=== PATIENT | female | born 1940 | race Caucasian/White ===

== ENCOUNTER 2018-08-14 18:01 | Inpatient (IN) | payer BC, OTHER ==
[2018-08-14 19:59] LABS: ADD MAN DIFF? NO
[2018-08-14 20:02] LABS: BASOPHILS % 0.1 % (0.0-2.0); EOSINOPHILS % 0.4 % (0.0-7.0); HEMATOCRIT 25.1 % (37.0-47.0); HEMOGLOBIN 7.7 g/dl (12.0-16.0); LYMPHOCYTES # 0.9 10^3/ul (0.8-2.9); MEAN CORPUSCULAR HEMOGLOBIN 30.2 pg (29.0-33.0); MEAN CORPUSCULAR HGB CONC 30.7 g/dl (32.0-37.0); MEAN CORPUSCULAR VOLUME 98.4 fl (82.0-101.0); MEAN PLATELET VOLUME 10.3 fl (7.4-10.4); MONOCYTE # 0.2 10^3/ul (0.3-0.9); MONOCYTES % 2.7 % (0.0-11.0); NEUTROPHIL # 7.7 10^3/ul (1.6-7.5); NEUTROPHILS % 85.5 % (39.0-77.0); NUCLEATED RED BLOOD CELLS% 0.2 /100WBC (0.0-0.0); PLATELET COUNT 347 10^3/UL (140-415); RED BLOOD COUNT 2.55 10^6/ul (4.20-5.40); RED CELL DISTRIBUTION WIDTH 21.6 % (11.5-14.5)
[2018-08-14 20:08] LABS: ADD UMIC YES; UR ASCORBIC ACID NEGATIVE (NEGATIVE); UR BILIRUBIN (Dip) NEGATIVE (NEGATIVE); UR BLOOD (Dip) 2+ mg/dL (NEGATIVE); UR CLARITY CLEAR (CLEAR); UR COLOR YELLOW (YELLOW); UR GLUCOSE (Dip) NEGATIVE (NEGATIVE); UR KETONES (Dip) NEGATIVE (NEGATIVE); UR LEUKOCYTE ESTERASE (Dip) NEGATIVE Leu/ul (NEGATIVE); UR NITRITE (Dip) NEGATIVE (NEGATIVE); UR RBC 1 /HPF (0-5); UR SPECIFIC GRAVITY (Dip) 1.015 (1.003-1.030); UR SQUAMOUS EPITHELIAL CELL FEW /HPF (FEW); UR TOTAL PROTEIN (Dip) NEGATIVE (NEGATIVE); UR UROBILINOGEN (Dip) NEGATIVE (NEGATIVE); UR WBC 1 /HPF (0-5)
[2018-08-14 20:18] LABS: ALANINE AMINOTRANSFERASE 16 IU/L (13-69); ALBUMIN 2.3 g/dl (3.3-4.9); ALBUMIN/GLOBULIN RATIO 0.92; ALKALINE PHOSPHATASE 115 IU/L (42-121); ANION GAP 12 (5-13); ASPARTATE AMINO TRANSFERASE 24 IU/L (15-46); BLOOD UREA NITROGEN 100 mg/dl (7-20); CALCIUM 8.6 mg/dl (8.4-10.2); CARBON DIOXIDE 16 mmol/L (21-31); CHLORIDE 104 mmol/L (97-110); GLUCOSE 75 mg/dl (70-220); LIPASE 140 U/L (23-300); POTASSIUM 5.4 mmol/L (3.5-5.1); SODIUM 132 mmol/L (135-144); TOTAL PROTEIN 4.8 g/dl (6.1-8.1)
[2018-08-14 20:20] LABS: INR 1.74; PROTIME 20.4 Sec (11.9-14.9); PT RATIO 1.6
[2018-08-14 20:21] LABS: PARTIAL THROMBOPLASTIN TIME 42.7 Sec (23.0-35.0)
[2018-08-14] MEDS: SOD CHLORIDE 0.9% 1,000 ML IV (20:25)
[2018-08-14 20:26] LABS: CREATININE 2.55 mg/dl (0.44-1.00)
[2018-08-14 20:31] LABS: TROPONIN-I 0.147 ng/ml (0.000-0.120)
[2018-08-14] MEDS: ONDANSETRON 4 MG INJ IV (20:58)
[2018-08-14] MEDS: morphine 4 MG/ML VIAL IV (20:59)
[2018-08-14] MEDS ORDERED: DIPHENOXYLATE/ATROPINE TAB PO (23:30)
[2018-08-15] MEDS: SOD CHLORIDE 0.9% 1,000 ML IV ×2 (00:21→12:50)
[2018-08-15] MEDS: EPOETIN 10000 UNITS/ML (NON ESRD/NON ONCOLOGY) SC (02:13)
[2018-08-15 05:52] LABS: ADD MAN DIFF? NO
[2018-08-15 06:02] LABS: ABNORMAL IP MESSAGE 1; BASOPHILS % 0.1 % (0.0-2.0); EOSINOPHILS % 0.1 % (0.0-7.0); HEMATOCRIT 21.6 % (37.0-47.0); LYMPHOCYTES # 0.8 10^3/ul (0.8-2.9); LYMPHOCYTES % 7.9 % (15.0-51.0); MEAN CORPUSCULAR HEMOGLOBIN 30.5 pg (29.0-33.0); MEAN CORPUSCULAR HGB CONC 31.9 g/dl (32.0-37.0); MEAN CORPUSCULAR VOLUME 95.6 fl (82.0-101.0); MONOCYTE # 0.3 10^3/ul (0.3-0.9); MONOCYTES % 2.9 % (0.0-11.0); NEUTROPHIL # 9.3 10^3/ul (1.6-7.5); NEUTROPHILS % 87.8 % (39.0-77.0); PLATELET COUNT 324 10^3/UL (140-415); RED BLOOD COUNT 2.26 10^6/ul (4.20-5.40); RED CELL DISTRIBUTION WIDTH 21.4 % (11.5-14.5)
[2018-08-15 06:02] LABS: WHITE BLOOD COUNT 10.6 10^3/ul (4.8-10.8)
[2018-08-15 06:23] LABS: POSITIVE DIFF @See below
[2018-08-15 06:25] LABS: HEMOGLOBIN 6.9 g/dl (12.0-16.0)
[2018-08-15 06:29] LABS: ANION GAP 12 (5-13); BLOOD UREA NITROGEN 99 mg/dl (7-20); CALCIUM 8.3 mg/dl (8.4-10.2); CARBON DIOXIDE 14 mmol/L (21-31); CHLORIDE 106 mmol/L (97-110); GLUCOSE 66 mg/dl (70-220); MAGNESIUM 2.4 mg/dl (1.7-2.5); POTASSIUM 5.2 mmol/L (3.5-5.1); SODIUM 132 mmol/L (135-144)
[2018-08-15 06:36] LABS: CREATININE 2.53 mg/dl (0.44-1.00)
[2018-08-15 06:37] LABS: TROPONIN-I 0.131 ng/ml (0.000-0.120)
[2018-08-15 07:17] LABS: RETICULOCYTE COUNT # 0.069 X10^6 (0.020-0.110); RETICULOCYTE COUNT % 3.1 % (0.5-1.5)
[2018-08-15 07:17] LABS: RETICULOCYTE RBC 2.21
[2018-08-15 07:22] LABS: IRON 22 ug/dl (35-150)
[2018-08-15 07:31] LABS: % IRON SATURATION 18 % SAT (22-52); TOTAL IRON BINDING CAPACITY 125 ug/dl (241-421)
[2018-08-15] MEDS: BENAZEPRIL 10 MG TAB PO (09:00)
[2018-08-15] MEDS: NEOMYC/POLYMYX/BACIT 30 GM OINT TOP ×2 (09:34→20:41)
[2018-08-15] MEDS: FERROUS SULFATE 60 MG/ML 5ML CUP PO ×3 (09:34→20:38)
[2018-08-15] MEDS: ACETAMINOPHEN 325 MG TAB PO (11:40)
[2018-08-15] MEDS: DIPHENHYDRAMINE 25 MG CAP PO (11:41)
[2018-08-15 13:27] LABS: OCCULT BLOOD STOOL POSITIVE (NEGATIVE)
[2018-08-15] MEDS: EPOETIN 10000 UNITS/1 ML INJ (ESRD) SC (15:31)
[2018-08-15] MEDS: FUROSEMIDE 40 MG INJ IV (15:31)
[2018-08-15 17:46] LABS: IMMEDIATE SPIN CROSSMATCH 1 2
[2018-08-15] MEDS: PANTOPRAZOLE 40 MG INJ IV (18:05)
[2018-08-15 20:09] LABS: INR 1.65; PROTIME 19.6 Sec (11.9-14.9); PT RATIO 1.5
[2018-08-15] MEDS: SODIUM BICARBONATE (IV ADD) 150 MEQ in DEXTROSE 5% 1,000 ML IV (20:38)
[2018-08-15] MEDS: LACTULOSE 30ML CUP PO ×3 (20:38→22:38)
[2018-08-15] MEDS: ATORVASTATIN 20 MG TAB PO (20:38)
[2018-08-15] MEDS: PEG/ELECTROLYTES 4L BTL PO (21:37)
[2018-08-16] MEDS: LACTULOSE 30ML CUP PO (00:40)
[2018-08-16] MEDS: PANTOPRAZOLE 40 MG INJ IV ×2 (05:08→18:16)
[2018-08-16 06:17] LABS: ADD MAN DIFF? NO
[2018-08-16 06:19] LABS: BASOPHILS % 0.2 % (0.0-2.0); EOSINOPHILS % 0.5 % (0.0-7.0); HEMATOCRIT 28.3 % (37.0-47.0); LYMPHOCYTES # 0.8 10^3/ul (0.8-2.9); LYMPHOCYTES % 9.7 % (15.0-51.0); MEAN CORPUSCULAR HEMOGLOBIN 30.2 pg (29.0-33.0); MEAN CORPUSCULAR HGB CONC 32.2 g/dl (32.0-37.0); MEAN PLATELET VOLUME 10.7 fl (7.4-10.4); MONOCYTE # 0.3 10^3/ul (0.3-0.9); MONOCYTES % 3.6 % (0.0-11.0); NEUTROPHIL # 7.3 10^3/ul (1.6-7.5); NEUTROPHILS % 84.8 % (39.0-77.0); NUCLEATED RED BLOOD CELLS% 0.2 /100WBC (0.0-0.0); PLATELET COUNT 296 10^3/UL (140-415); RED BLOOD COUNT 3.01 10^6/ul (4.20-5.40); RED CELL DISTRIBUTION WIDTH 19.6 % (11.5-14.5)
[2018-08-16 06:19] LABS: WHITE BLOOD COUNT 8.6 10^3/ul (4.8-10.8)
[2018-08-16] MEDS: SODIUM BICARBONATE (IV ADD) 150 MEQ in DEXTROSE 5% 1,000 ML IV ×2 (06:36→20:40)
[2018-08-16 06:39] LABS: ALANINE AMINOTRANSFERASE 17 IU/L (13-69); ALBUMIN 2.1 g/dl (3.3-4.9); ALBUMIN/GLOBULIN RATIO 0.91; ALKALINE PHOSPHATASE 106 IU/L (42-121); ANION GAP 9 (5-13); ASPARTATE AMINO TRANSFERASE 22 IU/L (15-46); BILIRUBIN,INDIRECT 0.1 mg/dl (0-1.1); BILIRUBIN,TOTAL 0.1 mg/dl (0.2-1.3); BLOOD UREA NITROGEN 95 mg/dl (7-20); CALCIUM 8.2 mg/dl (8.4-10.2); CARBON DIOXIDE 19 mmol/L (21-31); CHLORIDE 108 mmol/L (97-110); CREATININE 2.73 mg/dl (0.44-1.00); GLUCOSE 118 mg/dl (70-220); PHOSPHORUS 4.3 mg/dl (2.5-4.9); POTASSIUM 4.4 mmol/L (3.5-5.1); SODIUM 136 mmol/L (135-144); TOTAL PROTEIN 4.4 g/dl (6.1-8.1)
[2018-08-16 06:51] LABS: HEMOGLOBIN 9.1 g/dl (12.0-16.0)
[2018-08-16 07:08] LABS: IMMUNOGLOBULIN A 335 mg/dl (70-400); IMMUNOGLOBULIN G 606 mg/dl (700-1600); IMMUNOGLOBULIN M < 25 mg/dl (40-230)
[2018-08-16] MEDS: FERROUS SULFATE 60 MG/ML 5ML CUP PO ×3 (08:30→21:20)
[2018-08-16] MEDS: NEOMYC/POLYMYX/BACIT 30 GM OINT TOP ×2 (08:30→21:20)
[2018-08-16] MEDS: FUROSEMIDE 40 MG INJ IV (09:05)
[2018-08-16 10:12] LABS: OCCULT BLOOD STOOL POSITIVE (NEGATIVE)
[2018-08-16] MEDS: PROPOFOL 40 ML (15:01)
[2018-08-16] MEDS: PHENYLephrine (100 MCG/ML) 5ML SYG (15:01)
[2018-08-16] MEDS: GLUCAGON 1 MG INJ (15:33)
[2018-08-16 18:22] LABS: ADD UMIC YES; UR ASCORBIC ACID NEGATIVE (NEGATIVE); UR BILIRUBIN (Dip) NEGATIVE (NEGATIVE); UR BLOOD (Dip) 1+ mg/dL (NEGATIVE); UR CLARITY CLEAR (CLEAR); UR COLOR YELLOW (YELLOW); UR GLUCOSE (Dip) NEGATIVE (NEGATIVE); UR KETONES (Dip) NEGATIVE (NEGATIVE); UR LEUKOCYTE ESTERASE (Dip) NEGATIVE Leu/ul (NEGATIVE); UR NITRITE (Dip) NEGATIVE (NEGATIVE); UR RBC 0 /HPF (0-5); UR SPECIFIC GRAVITY (Dip) 1.013 (1.003-1.030); UR TOTAL PROTEIN (Dip) NEGATIVE (NEGATIVE); UR UROBILINOGEN (Dip) NEGATIVE (NEGATIVE); UR WBC 6 /HPF (0-5)
[2018-08-16] MEDS: ATORVASTATIN 20 MG TAB PO (21:20)
[2018-08-17] MEDS: PANTOPRAZOLE 40 MG INJ IV ×2 (06:08→17:37)
[2018-08-17 06:18] LABS: ADD MAN DIFF? NO; BASOPHILS % 0.3 % (0.0-2.0); EOSINOPHILS # 0.1 10^3/ul (0.0-0.5); EOSINOPHILS % 0.8 % (0.0-7.0); HEMOGLOBIN 9.2 g/dl (12.0-16.0); LYMPHOCYTES # 0.8 10^3/ul (0.8-2.9); LYMPHOCYTES % 9.3 % (15.0-51.0); MEAN CORPUSCULAR HEMOGLOBIN 30.8 pg (29.0-33.0); MEAN CORPUSCULAR HGB CONC 31.7 g/dl (32.0-37.0); MEAN PLATELET VOLUME 11.1 fl (7.4-10.4); MONOCYTE # 0.4 10^3/ul (0.3-0.9); MONOCYTES % 4.6 % (0.0-11.0); NEUTROPHIL # 7.2 10^3/ul (1.6-7.5); NEUTROPHILS % 83.4 % (39.0-77.0); PLATELET COUNT 258 10^3/UL (140-415); RED BLOOD COUNT 2.99 10^6/ul (4.20-5.40); RED CELL DISTRIBUTION WIDTH 20.4 % (11.5-14.5)
[2018-08-17 06:18] LABS: WHITE BLOOD COUNT 8.7 10^3/ul (4.8-10.8)
[2018-08-17 06:55] LABS: ALANINE AMINOTRANSFERASE 15 IU/L (13-69); ALBUMIN 2.1 g/dl (3.3-4.9); ALBUMIN/GLOBULIN RATIO 0.91; ALKALINE PHOSPHATASE 99 IU/L (42-121); ANION GAP 11 (5-13); ASPARTATE AMINO TRANSFERASE 24 IU/L (15-46); BLOOD UREA NITROGEN 89 mg/dl (7-20); CALCIUM 8.2 mg/dl (8.4-10.2); CARBON DIOXIDE 16 mmol/L (21-31); CHLORIDE 109 mmol/L (97-110); CREATININE 2.47 mg/dl (0.44-1.00); GLUCOSE 88 mg/dl (70-220); POTASSIUM 3.8 mmol/L (3.5-5.1); SODIUM 136 mmol/L (135-144); TOTAL PROTEIN 4.4 g/dl (6.1-8.1)
[2018-08-17] MEDS: FERROUS SULFATE 60 MG/ML 5ML CUP PO ×3 (08:39→20:41)
[2018-08-17] MEDS: FUROSEMIDE 40 MG INJ IV (08:39)
[2018-08-17] MEDS: NEOMYC/POLYMYX/BACIT 30 GM OINT TOP ×2 (08:39→20:42)
[2018-08-17] MEDS: BALSAM PERU/CASTOR OIL 60 GM TUBE TOP (08:40)
[2018-08-17 09:36] LABS: PROTEIN, TOTAL 4.2 g/dL (6.1-8.1)
[2018-08-17] MEDS: SUCRALFATE 1 GM TAB PO ×2 (17:37→23:31)
[2018-08-17] MEDS: ATORVASTATIN 20 MG TAB PO (20:41)
[2018-08-18] MEDS: SUCRALFATE 1 GM TAB PO ×3 (05:39→17:13)
[2018-08-18] MEDS: PANTOPRAZOLE 40 MG INJ IV ×2 (05:39→17:13)
[2018-08-18] MEDS: FERROUS SULFATE 60 MG/ML 5ML CUP PO ×3 (08:28→20:54)
[2018-08-18] MEDS: NEOMYC/POLYMYX/BACIT 30 GM OINT TOP ×2 (08:28→20:54)
[2018-08-18] MEDS: FUROSEMIDE 40 MG INJ IV (08:31)
[2018-08-18] MEDS: BALSAM PERU/CASTOR OIL 60 GM TUBE TOP (09:42)
[2018-08-18] MEDS: ATORVASTATIN 20 MG TAB PO (20:53)
[2018-08-18 22:27] LABS: PTH CALCIUM 7.6 mg/dL (8.6-10.4)
[2018-08-19] MEDS: SUCRALFATE 1 GM TAB PO ×4 (00:35→17:35)
[2018-08-19] MEDS: PANTOPRAZOLE 40 MG INJ IV ×2 (05:19→17:35)
[2018-08-19 05:29] LABS: ADD MAN DIFF? NO
[2018-08-19 05:45] LABS: BASOPHILS % 0.3 % (0.0-2.0); EOSINOPHILS # 0.2 10^3/ul (0.0-0.5); HEMATOCRIT 28.4 % (37.0-47.0); HEMOGLOBIN 9.4 g/dl (12.0-16.0); LYMPHOCYTES # 0.9 10^3/ul (0.8-2.9); LYMPHOCYTES % 9.1 % (15.0-51.0); MEAN CORPUSCULAR HGB CONC 33.1 g/dl (32.0-37.0); MEAN CORPUSCULAR VOLUME 93.7 fl (82.0-101.0); MEAN PLATELET VOLUME 10.7 fl (7.4-10.4); MONOCYTE # 0.5 10^3/ul (0.3-0.9); MONOCYTES % 5.3 % (0.0-11.0); NEUTROPHIL # 7.6 10^3/ul (1.6-7.5); NEUTROPHILS % 81.3 % (39.0-77.0); PLATELET COUNT 244 10^3/UL (140-415); RED BLOOD COUNT 3.03 10^6/ul (4.20-5.40)
[2018-08-19 05:45] LABS: WHITE BLOOD COUNT 9.4 10^3/ul (4.8-10.8)
[2018-08-19 06:14] LABS: ALANINE AMINOTRANSFERASE 19 IU/L (13-69); ALBUMIN 1.9 g/dl (3.3-4.9); ALBUMIN/GLOBULIN RATIO 0.82; ALKALINE PHOSPHATASE 89 IU/L (42-121); ANION GAP 5 (5-13); ASPARTATE AMINO TRANSFERASE 15 IU/L (15-46); BLOOD UREA NITROGEN 76 mg/dl (7-20); CARBON DIOXIDE 21 mmol/L (21-31); CHLORIDE 108 mmol/L (97-110); CREATININE 2.25 mg/dl (0.44-1.00); GLUCOSE 118 mg/dl (70-220); POTASSIUM 3.2 mmol/L (3.5-5.1); SODIUM 134 mmol/L (135-144); TOTAL PROTEIN 4.2 g/dl (6.1-8.1)
[2018-08-19] MEDS: FUROSEMIDE 40 MG INJ IV (08:33)
[2018-08-19] MEDS: FERROUS SULFATE 60 MG/ML 5ML CUP PO ×3 (08:34→21:01)
[2018-08-19] MEDS: BALSAM PERU/CASTOR OIL 60 GM TUBE TOP (08:34)
[2018-08-19] MEDS: POTASSIUM CHLORIDE (SR) 20 MEQ TAB PO ×2 (08:34→21:01)
[2018-08-19] MEDS: NEOMYC/POLYMYX/BACIT 30 GM OINT TOP ×2 (08:34→21:02)
[2018-08-19 08:36] LABS: PTH INTACT 78 pg/mL (14-64)
[2018-08-19 14:53] LABS: BETA-2 MICROGLOBULIN 17.63 mg/L (< OR = 2.51)
[2018-08-19] MEDS: ATORVASTATIN 20 MG TAB PO (21:01)
[2018-08-19] MEDS: NYSTATIN 30 GM POWDER BTL TOP (21:02)
[2018-08-19 23:23] LABS: ALBUMIN 2.1 g/dL (3.8-4.8); ALPHA-1-GLOBULINS 0.5 g/dL (0.2-0.3); ALPHA-2-GLOBULINS 0.5 g/dL (0.5-0.9); BETA 2 GLOBULINS 0.3 g/dL (0.2-0.5); BETA GLOBULINS 0.2 g/dL (0.4-0.6); GAMMA GLOBULINS 0.6 g/dL (0.8-1.7)
[2018-08-20] MEDS: SUCRALFATE 1 GM TAB PO ×4 (00:45→17:34)
[2018-08-20] MEDS: ALBUMIN HUMAN 25% 100 ML IV ×2 (00:47→02:07)
[2018-08-20] MEDS: PANTOPRAZOLE 40 MG INJ IV ×2 (05:12→17:34)
[2018-08-20 05:15] LABS: ADD MAN DIFF? NO
[2018-08-20 05:20] LABS: BASOPHILS % 0.3 % (0.0-2.0); EOSINOPHILS # 0.2 10^3/ul (0.0-0.5); EOSINOPHILS % 2.8 % (0.0-7.0); HEMATOCRIT 23.8 % (37.0-47.0); HEMOGLOBIN 7.7 g/dl (12.0-16.0); LYMPHOCYTES # 0.8 10^3/ul (0.8-2.9); LYMPHOCYTES % 11.9 % (15.0-51.0); MEAN CORPUSCULAR HEMOGLOBIN 30.6 pg (29.0-33.0); MEAN CORPUSCULAR HGB CONC 32.4 g/dl (32.0-37.0); MEAN CORPUSCULAR VOLUME 94.4 fl (82.0-101.0); MEAN PLATELET VOLUME 10.7 fl (7.4-10.4); MONOCYTE # 0.4 10^3/ul (0.3-0.9); MONOCYTES % 6.2 % (0.0-11.0); NEUTROPHIL # 5.3 10^3/ul (1.6-7.5); NEUTROPHILS % 77.2 % (39.0-77.0); PLATELET COUNT 215 10^3/UL (140-415); RED BLOOD COUNT 2.52 10^6/ul (4.20-5.40); RED CELL DISTRIBUTION WIDTH 20.3 % (11.5-14.5)
[2018-08-20 05:20] LABS: WHITE BLOOD COUNT 6.8 10^3/ul (4.8-10.8)
[2018-08-20 05:26] LABS: ANION GAP 9 (5-13); BLOOD UREA NITROGEN 75 mg/dl (7-20); CALCIUM 8.2 mg/dl (8.4-10.2); CARBON DIOXIDE 21 mmol/L (21-31); CHLORIDE 105 mmol/L (97-110); CREATININE 2.02 mg/dl (0.44-1.00); GLUCOSE 94 mg/dl (70-220); POTASSIUM 3.4 mmol/L (3.5-5.1); SODIUM 135 mmol/L (135-144)
[2018-08-20] MEDS: FERROUS SULFATE 60 MG/ML 5ML CUP PO ×3 (08:32→20:30)
[2018-08-20] MEDS: ASPIRIN (EC) 81 MG TAB PO ×2 (08:33→09:00)
[2018-08-20] MEDS: POTASSIUM CHLORIDE (SR) 20 MEQ TAB PO (08:33)
[2018-08-20] MEDS: FUROSEMIDE 40 MG INJ IV (08:33)
[2018-08-20] MEDS: CALCIUM CARBONATE 500 MG CHEW TAB PO ×3 (08:33→18:17)
[2018-08-20] MEDS: NEOMYC/POLYMYX/BACIT 30 GM OINT TOP ×2 (08:34→20:32)
[2018-08-20] MEDS: NYSTATIN 30 GM POWDER BTL TOP ×2 (08:34→20:31)
[2018-08-20] MEDS: BALSAM PERU/CASTOR OIL 60 GM TUBE TOP (08:34)
[2018-08-20] MEDS: DIPHENHYDRAMINE 50 MG CAP PO (12:03)
[2018-08-20 13:40] LABS: IMMEDIATE SPIN CROSSMATCH 1
[2018-08-20] MEDS: ACETAMINOPHEN 325 MG TAB PO (13:51)
[2018-08-20 15:40] LABS: HEMOGLOBIN 10.1 g/dl (12.0-16.0)
[2018-08-20 15:55] LABS: POTASSIUM 3.8 mmol/L (3.5-5.1)
[2018-08-20 17:02] LABS: IMMEDIATE SPIN CROSSMATCH 1 2
[2018-08-20] MEDS: ATORVASTATIN 20 MG TAB PO (20:30)
[2018-08-21] MEDS: SUCRALFATE 1 GM TAB PO ×5 (00:07→23:51)
[2018-08-21] MEDS: PANTOPRAZOLE 40 MG INJ IV ×2 (06:07→18:07)
[2018-08-21] MEDS: FUROSEMIDE 40 MG INJ IV (09:01)
[2018-08-21] MEDS: NEOMYC/POLYMYX/BACIT 30 GM OINT TOP ×2 (09:01→20:53)
[2018-08-21] MEDS: CALCIUM CARBONATE 500 MG CHEW TAB PO ×3 (09:01→18:09)
[2018-08-21] MEDS: FERROUS SULFATE 60 MG/ML 5ML CUP PO ×3 (09:01→20:52)
[2018-08-21] MEDS: NYSTATIN 30 GM POWDER BTL TOP ×2 (09:02→20:53)
[2018-08-21] MEDS: BALSAM PERU/CASTOR OIL 60 GM TUBE TOP (09:04)
[2018-08-21 10:30] LABS: ADD MAN DIFF? NO
[2018-08-21 10:33] LABS: WHITE BLOOD COUNT 8.3 10^3/ul (4.8-10.8)
[2018-08-21 10:34] LABS: ABNORMAL IP MESSAGE 1; BASOPHILS % 0.5 % (0.0-2.0); EOSINOPHILS # 0.3 10^3/ul (0.0-0.5); EOSINOPHILS % 3.5 % (0.0-7.0); HEMATOCRIT 32.8 % (37.0-47.0); HEMOGLOBIN 10.6 g/dl (12.0-16.0); LYMPHOCYTES # 0.6 10^3/ul (0.8-2.9); MEAN CORPUSCULAR HEMOGLOBIN 30.9 pg (29.0-33.0); MEAN CORPUSCULAR HGB CONC 32.3 g/dl (32.0-37.0); MEAN CORPUSCULAR VOLUME 95.6 fl (82.0-101.0); MEAN PLATELET VOLUME 10.6 fl (7.4-10.4); MONOCYTE # 0.6 10^3/ul (0.3-0.9); MONOCYTES % 6.6 % (0.0-11.0); NEUTROPHIL # 6.7 10^3/ul (1.6-7.5); NEUTROPHILS % 80.8 % (39.0-77.0); PLATELET COUNT 239 10^3/UL (140-415); RED BLOOD COUNT 3.43 10^6/ul (4.20-5.40); RED CELL DISTRIBUTION WIDTH 20.2 % (11.5-14.5)
[2018-08-21 10:36] LABS: POSITIVE DIFF @See below
[2018-08-21 10:57] LABS: ANION GAP 9 (5-13); BLOOD UREA NITROGEN 67 mg/dl (7-20); CALCIUM 8.4 mg/dl (8.4-10.2); CARBON DIOXIDE 24 mmol/L (21-31); CHLORIDE 106 mmol/L (97-110); CREATININE 1.87 mg/dl (0.44-1.00); GLUCOSE 137 mg/dl (70-220); POTASSIUM 3.3 mmol/L (3.5-5.1); SODIUM 139 mmol/L (135-144)
[2018-08-21] MEDS: POTASSIUM CHLORIDE (SR) 20 MEQ TAB PO ×2 (13:07→20:52)
[2018-08-21] MEDS: ATORVASTATIN 20 MG TAB PO (20:52)
[2018-08-22] MEDS: SUCRALFATE 1 GM TAB PO ×3 (05:40→17:28)
[2018-08-22] MEDS: PANTOPRAZOLE 40 MG INJ IV ×2 (05:40→17:28)
[2018-08-22 06:21] LABS: ADD MAN DIFF? NO
[2018-08-22 06:28] LABS: BASOPHILS % 0.4 % (0.0-2.0); EOSINOPHILS # 0.2 10^3/ul (0.0-0.5); EOSINOPHILS % 2.7 % (0.0-7.0); HEMATOCRIT 32.1 % (37.0-47.0); HEMOGLOBIN 10.4 g/dl (12.0-16.0); LYMPHOCYTES # 0.6 10^3/ul (0.8-2.9); LYMPHOCYTES % 9.1 % (15.0-51.0); MEAN CORPUSCULAR HEMOGLOBIN 30.9 pg (29.0-33.0); MEAN CORPUSCULAR HGB CONC 32.4 g/dl (32.0-37.0); MEAN CORPUSCULAR VOLUME 95.3 fl (82.0-101.0); MEAN PLATELET VOLUME 10.9 fl (7.4-10.4); MONOCYTE # 0.5 10^3/ul (0.3-0.9); MONOCYTES % 6.8 % (0.0-11.0); NEUTROPHIL # 5.6 10^3/ul (1.6-7.5); NEUTROPHILS % 79.6 % (39.0-77.0); PLATELET COUNT 217 10^3/UL (140-415); RED BLOOD COUNT 3.37 10^6/ul (4.20-5.40); RED CELL DISTRIBUTION WIDTH 20.2 % (11.5-14.5)
[2018-08-22 06:39] LABS: POSITIVE DIFF @See below
[2018-08-22 06:52] LABS: ALBUMIN 2.2 g/dl (3.3-4.9)
[2018-08-22 06:52] LABS: MAGNESIUM 1.9 mg/dl (1.7-2.5)
[2018-08-22 07:01] LABS: INR 1.26; PROTIME 15.9 Sec (11.9-14.9); PT RATIO 1.2
[2018-08-22 07:02] LABS: ANION GAP 6 (5-13); BLOOD UREA NITROGEN 64 mg/dl (7-20); CALCIUM 8.4 mg/dl (8.4-10.2); CARBON DIOXIDE 24 mmol/L (21-31); CHLORIDE 109 mmol/L (97-110); CREATININE 1.77 mg/dl (0.44-1.00); GLUCOSE 93 mg/dl (70-220); POTASSIUM 3.7 mmol/L (3.5-5.1); SODIUM 139 mmol/L (135-144)
[2018-08-22] MEDS: CALCIUM CARBONATE 500 MG CHEW TAB PO ×3 (09:05→17:28)
[2018-08-22] MEDS: FUROSEMIDE 40 MG INJ IV (09:05)
[2018-08-22] MEDS: FERROUS SULFATE 60 MG/ML 5ML CUP PO ×3 (09:06→21:14)
[2018-08-22] MEDS: NYSTATIN 30 GM POWDER BTL TOP ×2 (09:06→21:13)
[2018-08-22] MEDS: POTASSIUM CHLORIDE (SR) 20 MEQ TAB PO (09:06)
[2018-08-22] MEDS: ESCITALOPRAM 10 MG TAB PO (09:06)
[2018-08-22] MEDS: NEOMYC/POLYMYX/BACIT 30 GM OINT TOP ×2 (09:06→21:14)
[2018-08-22] MEDS: BALSAM PERU/CASTOR OIL 60 GM TUBE TOP (09:07)
[2018-08-22] MEDS: HYDROmorphONE 2 MG/ML SYG IV ×2 (14:49→21:22)
[2018-08-22] MEDS: VITAMIN B COMPLEX/VIT C CAP PO (16:49)
[2018-08-22] MEDS: MEMANTINE 10 MG TAB PO (16:50)
[2018-08-22] MEDS: ALBUMIN HUMAN 25% 100 ML IV ×2 (20:12→21:21)
[2018-08-22] MEDS: COLLAGENASE 5 GM (UD JAR) TOP (21:13)
[2018-08-22] MEDS: ATORVASTATIN 20 MG TAB PO (21:14)
[2018-08-22] MEDS: CLINDAMYCIN 300 MG CAP PO (22:00)
[2018-08-23 06:20] LABS: ADD MAN DIFF? NO
[2018-08-23] MEDS: CLINDAMYCIN 300 MG CAP PO ×3 (06:28→22:50)
[2018-08-23] MEDS: PANTOPRAZOLE 40 MG INJ IV ×2 (06:28→17:28)
[2018-08-23] MEDS: SUCRALFATE 1 GM TAB PO ×4 (06:28→17:29)
[2018-08-23 06:29] LABS: BASOPHILS % 0.6 % (0.0-2.0); EOSINOPHILS # 0.2 10^3/ul (0.0-0.5); EOSINOPHILS % 3.5 % (0.0-7.0); HEMATOCRIT 29.3 % (37.0-47.0); HEMOGLOBIN 9.2 g/dl (12.0-16.0); LYMPHOCYTES # 0.7 10^3/ul (0.8-2.9); LYMPHOCYTES % 10.8 % (15.0-51.0); MEAN CORPUSCULAR HEMOGLOBIN 31.3 pg (29.0-33.0); MEAN CORPUSCULAR HGB CONC 31.4 g/dl (32.0-37.0); MEAN CORPUSCULAR VOLUME 99.7 fl (82.0-101.0); MEAN PLATELET VOLUME 11.2 fl (7.4-10.4); MONOCYTE # 0.5 10^3/ul (0.3-0.9); MONOCYTES % 7.2 % (0.0-11.0); NEUTROPHIL # 4.9 10^3/ul (1.6-7.5); NEUTROPHILS % 77.1 % (39.0-77.0); PLATELET COUNT 197 10^3/UL (140-415); RED BLOOD COUNT 2.94 10^6/ul (4.20-5.40); RED CELL DISTRIBUTION WIDTH 20.5 % (11.5-14.5)
[2018-08-23 06:29] LABS: WHITE BLOOD COUNT 6.3 10^3/ul (4.8-10.8)
[2018-08-23 07:15] LABS: ALBUMIN 2.7 g/dl (3.3-4.9); ANION GAP 7 (5-13); BLOOD UREA NITROGEN 61 mg/dl (7-20); CALCIUM 8.4 mg/dl (8.4-10.2); CARBON DIOXIDE 25 mmol/L (21-31); CHLORIDE 107 mmol/L (97-110); CREATININE 1.91 mg/dl (0.44-1.00); GLUCOSE 92 mg/dl (70-220); POTASSIUM 3.4 mmol/L (3.5-5.1); SODIUM 139 mmol/L (135-144)
[2018-08-23] MEDS: ESCITALOPRAM 10 MG TAB PO (08:41)
[2018-08-23] MEDS: VITAMIN B COMPLEX/VIT C CAP PO (08:41)
[2018-08-23] MEDS: FERROUS SULFATE 60 MG/ML 5ML CUP PO ×3 (08:41→22:50)
[2018-08-23] MEDS: FUROSEMIDE 40 MG INJ IV (08:41)
[2018-08-23] MEDS: CALCIUM CARBONATE 500 MG CHEW TAB PO ×3 (08:41→17:29)
[2018-08-23] MEDS: NEOMYC/POLYMYX/BACIT 30 GM OINT TOP ×2 (08:42→22:51)
[2018-08-23] MEDS: COLLAGENASE 5 GM (UD JAR) TOP ×2 (08:42→22:51)
[2018-08-23] MEDS: BALSAM PERU/CASTOR OIL 60 GM TUBE TOP (08:43)
[2018-08-23] MEDS: NYSTATIN 30 GM POWDER BTL TOP ×2 (08:43→22:51)
[2018-08-23] MEDS: HYDROCODONE/APAP (10/325) TAB PO (14:50)
[2018-08-23] MEDS: MEMANTINE 10 MG TAB PO (17:29)
[2018-08-23] MEDS: ATORVASTATIN 20 MG TAB PO (22:50)
[2018-08-24] MEDS: SUCRALFATE 1 GM TAB PO ×5 (00:35→23:03)
[2018-08-24] MEDS: POTASSIUM CHLORIDE 100 ML IVPB ×2 (00:35→03:02)
[2018-08-24] MEDS: HYDROCODONE/APAP (10/325) TAB PO (01:10)
[2018-08-24] MEDS: PANTOPRAZOLE 40 MG INJ IV ×2 (05:58→17:36)
[2018-08-24] MEDS: CLINDAMYCIN 300 MG CAP PO ×3 (05:59→21:22)
[2018-08-24 06:32] LABS: ADD MAN DIFF? NO
[2018-08-24 06:49] LABS: BASOPHILS % 0.5 % (0.0-2.0); EOSINOPHILS # 0.2 10^3/ul (0.0-0.5); EOSINOPHILS % 2.5 % (0.0-7.0); HEMATOCRIT 31.3 % (37.0-47.0); HEMOGLOBIN 10.1 g/dl (12.0-16.0); LYMPHOCYTES # 0.7 10^3/ul (0.8-2.9); LYMPHOCYTES % 8.5 % (15.0-51.0); MEAN CORPUSCULAR HEMOGLOBIN 31.4 pg (29.0-33.0); MEAN CORPUSCULAR HGB CONC 32.3 g/dl (32.0-37.0); MEAN CORPUSCULAR VOLUME 97.2 fl (82.0-101.0); MEAN PLATELET VOLUME 11.7 fl (7.4-10.4); MONOCYTE # 0.5 10^3/ul (0.3-0.9); MONOCYTES % 5.7 % (0.0-11.0); NEUTROPHIL # 6.6 10^3/ul (1.6-7.5); NEUTROPHILS % 82.2 % (39.0-77.0); PLATELET COUNT 199 10^3/UL (140-415); RED BLOOD COUNT 3.22 10^6/ul (4.20-5.40); RED CELL DISTRIBUTION WIDTH 20.1 % (11.5-14.5)
[2018-08-24 07:11] LABS: ANION GAP 10 (5-13); BLOOD UREA NITROGEN 57 mg/dl (7-20); CALCIUM 8.3 mg/dl (8.4-10.2); CARBON DIOXIDE 26 mmol/L (21-31); CHLORIDE 102 mmol/L (97-110); GLUCOSE 82 mg/dl (70-220); MAGNESIUM 1.8 mg/dl (1.7-2.5); POTASSIUM 4.1 mmol/L (3.5-5.1); SODIUM 138 mmol/L (135-144)
[2018-08-24 07:19] LABS: B-TYPE NATRIURETIC PEPTIDE 12200 PG/ML (0-450)
[2018-08-24] MEDS: FERROUS SULFATE 60 MG/ML 5ML CUP PO ×3 (08:38→21:22)
[2018-08-24] MEDS: VITAMIN B COMPLEX/VIT C CAP PO (08:38)
[2018-08-24] MEDS: CALCIUM CARBONATE 500 MG CHEW TAB PO ×3 (08:40→17:35)
[2018-08-24] MEDS: FUROSEMIDE 40 MG TAB PO (08:41)
[2018-08-24] MEDS: ESCITALOPRAM 10 MG TAB PO (08:41)
[2018-08-24] MEDS: NEOMYC/POLYMYX/BACIT 30 GM OINT TOP ×2 (08:42→21:23)
[2018-08-24] MEDS: BALSAM PERU/CASTOR OIL 60 GM TUBE TOP (08:43)
[2018-08-24] MEDS: NYSTATIN 30 GM POWDER BTL TOP ×2 (08:43→21:22)
[2018-08-24] MEDS: COLLAGENASE 5 GM (UD JAR) TOP ×2 (08:50→21:23)
[2018-08-24] MEDS: MAGNESIUM SULFATE 2 GM/50 ML 50 ML IVPB (10:37)
[2018-08-24] MEDS: HYDROmorphONE 2 MG/ML SYG IV (11:26)
[2018-08-24] MEDS: MAGNESIUM OXIDE 400 MG TAB PO (12:14)
[2018-08-24] MEDS: MEMANTINE 10 MG TAB PO (17:35)
[2018-08-24] MEDS: ATORVASTATIN 20 MG TAB PO (21:22)
[2018-08-25] MEDS: HYDROCODONE/APAP (10/325) TAB PO (04:25)
[2018-08-25] MEDS: SUCRALFATE 1 GM TAB PO ×3 (05:08→17:35)
[2018-08-25] MEDS: CLINDAMYCIN 300 MG CAP PO ×3 (05:08→22:21)
[2018-08-25] MEDS: PANTOPRAZOLE 40 MG INJ IV (05:08)
[2018-08-25 06:46] LABS: ADD MAN DIFF? NO
[2018-08-25 06:55] LABS: WHITE BLOOD COUNT 9.1 10^3/ul (4.8-10.8)
[2018-08-25 06:55] LABS: BASOPHILS % 0.3 % (0.0-2.0); EOSINOPHILS # 0.3 10^3/ul (0.0-0.5); EOSINOPHILS % 2.8 % (0.0-7.0); HEMATOCRIT 30.9 % (37.0-47.0); HEMOGLOBIN 9.9 g/dl (12.0-16.0); LYMPHOCYTES # 0.7 10^3/ul (0.8-2.9); LYMPHOCYTES % 7.3 % (15.0-51.0); MEAN CORPUSCULAR HEMOGLOBIN 30.9 pg (29.0-33.0); MEAN CORPUSCULAR VOLUME 96.6 fl (82.0-101.0); MEAN PLATELET VOLUME 11.2 fl (7.4-10.4); MONOCYTE # 0.4 10^3/ul (0.3-0.9); MONOCYTES % 4.6 % (0.0-11.0); NEUTROPHIL # 7.7 10^3/ul (1.6-7.5); NEUTROPHILS % 84.6 % (39.0-77.0); PLATELET COUNT 168 10^3/UL (140-415); RED CELL DISTRIBUTION WIDTH 20.2 % (11.5-14.5)
[2018-08-25 07:25] LABS: ANION GAP 12 (5-13); BLOOD UREA NITROGEN 60 mg/dl (7-20); CALCIUM 8.1 mg/dl (8.4-10.2); CARBON DIOXIDE 23 mmol/L (21-31); CHLORIDE 102 mmol/L (97-110); CREATININE 2.01 mg/dl (0.44-1.00); GLUCOSE 102 mg/dl (70-220); MAGNESIUM 1.9 mg/dl (1.7-2.5); POTASSIUM 3.7 mmol/L (3.5-5.1); SODIUM 137 mmol/L (135-144)
[2018-08-25 07:29] LABS: B-TYPE NATRIURETIC PEPTIDE 10500 PG/ML (0-450)
[2018-08-25] MEDS: CALCIUM CARBONATE 500 MG CHEW TAB PO ×3 (09:00→17:35)
[2018-08-25] MEDS: FERROUS SULFATE 60 MG/ML 5ML CUP PO ×3 (09:00→22:20)
[2018-08-25] MEDS: ESCITALOPRAM 10 MG TAB PO (09:14)
[2018-08-25] MEDS: FUROSEMIDE 40 MG TAB PO (09:14)
[2018-08-25] MEDS: VITAMIN B COMPLEX/VIT C CAP PO (09:14)
[2018-08-25] MEDS: COLLAGENASE 5 GM (UD JAR) TOP ×2 (09:15→22:21)
[2018-08-25] MEDS: NYSTATIN 30 GM POWDER BTL TOP ×2 (09:15→21:00)
[2018-08-25] MEDS: BALSAM PERU/CASTOR OIL 60 GM TUBE TOP (09:15)
[2018-08-25] MEDS: NEOMYC/POLYMYX/BACIT 30 GM OINT TOP ×2 (09:15→21:00)
[2018-08-25] MEDS: HYDROmorphONE 2 MG/ML SYG IV (09:44)
[2018-08-25] MEDS ORDERED: DIPHENOXYLATE/ATROPINE TAB PO (14:00)
[2018-08-25] MEDS: CALCIUM GLUCONATE 10% 1 GM in DEXTROSE 5% 100 ML IVPB (15:00)
[2018-08-25] MEDS: PANTOPRAZOLE (EC) 40 MG TAB PO (17:35)
[2018-08-25] MEDS: MEMANTINE 10 MG TAB PO (17:35)
[2018-08-25 18:29] LABS: HEMATOCRIT 32.4 % (37.0-47.0); HEMOGLOBIN 10.4 g/dl (12.0-16.0)
[2018-08-25] MEDS: D5W-0.45 NACL + KCL 20 MEQ 1,000 ML IV (18:41)
[2018-08-25 20:29] LABS: ADD UMIC YES; UR AMORPHOUS CRYSTAL MANY /HPF (NONE SEEN); UR ASCORBIC ACID NEGATIVE (NEGATIVE); UR BACTERIA MODERATE /HPF (NONE SEEN); UR BILIRUBIN (Dip) NEGATIVE (NEGATIVE); UR BLOOD (Dip) 2+ mg/dL (NEGATIVE); UR CLARITY CLOUDY (CLEAR); UR COLOR AMBER (YELLOW); UR GLUCOSE (Dip) NEGATIVE (NEGATIVE); UR KETONES (Dip) NEGATIVE (NEGATIVE); UR LEUKOCYTE ESTERASE (Dip) 2+ Leu/ul (NEGATIVE); UR MUCUS FEW /HPF (NONE SEEN); UR NITRITE (Dip) NEGATIVE (NEGATIVE); UR NONSQUAMOUS EPITHELIAL CELL 1 /HPF (NONE SEEN); UR RBC 28 /HPF (0-5); UR SPECIFIC GRAVITY (Dip) 1.013 (1.003-1.030); UR SQUAMOUS EPITHELIAL CELL FEW /HPF (FEW); UR TOTAL PROTEIN (Dip) 1+ mg/dl (NEGATIVE); UR UROBILINOGEN (Dip) NEGATIVE (NEGATIVE); UR WBC > 182 /HPF (0-5)
[2018-08-25] MEDS: ATORVASTATIN 20 MG TAB PO (22:20)
[2018-08-26] MEDS: SUCRALFATE 1 GM TAB PO ×4 (01:01→17:28)
[2018-08-26] MEDS: PANTOPRAZOLE (EC) 40 MG TAB PO ×2 (06:26→17:28)
[2018-08-26] MEDS: CLINDAMYCIN 300 MG CAP PO (06:26)
[2018-08-26 06:28] LABS: ADD MAN DIFF? NO
[2018-08-26 06:30] LABS: WHITE BLOOD COUNT 10.5 10^3/ul (4.8-10.8)
[2018-08-26 06:30] LABS: ABNORMAL IP MESSAGE 1; BASOPHILS % 0.2 % (0.0-2.0); EOSINOPHILS # 0.1 10^3/ul (0.0-0.5); EOSINOPHILS % 0.7 % (0.0-7.0); HEMATOCRIT 30.1 % (37.0-47.0); HEMOGLOBIN 9.7 g/dl (12.0-16.0); LYMPHOCYTES # 0.6 10^3/ul (0.8-2.9); LYMPHOCYTES % 5.6 % (15.0-51.0); MEAN CORPUSCULAR HGB CONC 32.2 g/dl (32.0-37.0); MEAN CORPUSCULAR VOLUME 96.2 fl (82.0-101.0); MEAN PLATELET VOLUME 12.1 fl (7.4-10.4); MONOCYTE # 0.4 10^3/ul (0.3-0.9); NEUTROPHIL # 9.4 10^3/ul (1.6-7.5); NEUTROPHILS % 89.1 % (39.0-77.0); PLATELET COUNT 184 10^3/UL (140-415); RED BLOOD COUNT 3.13 10^6/ul (4.20-5.40); RED CELL DISTRIBUTION WIDTH 20.2 % (11.5-14.5)
[2018-08-26 06:33] LABS: POSITIVE DIFF @See below
[2018-08-26] MEDS: D5W-0.45 NACL + KCL 20 MEQ 1,000 ML IV ×2 (07:00→10:28)
[2018-08-26 07:09] LABS: ALBUMIN 2.3 g/dl (3.3-4.9); ANION GAP 11 (5-13); BLOOD UREA NITROGEN 63 mg/dl (7-20); CARBON DIOXIDE 23 mmol/L (21-31); CHLORIDE 101 mmol/L (97-110); CHOL/HDL RATIO 2.4 RATIO; CHOLESTEROL 68 mg/dl (100-200); CREATININE 2.12 mg/dl (0.44-1.00); GLUCOSE 138 mg/dl (70-220); HDL CHOLESTEROL 28 mg/dl (33-92); LDL CHOLESTEROL,CALCULATED 22 mg/dl; MAGNESIUM 1.9 mg/dl (1.7-2.5); POTASSIUM 3.4 mmol/L (3.5-5.1); SODIUM 135 mmol/L (135-144); TRIGLYCERIDES 89 mg/dl (0-149)
[2018-08-26 07:17] LABS: B-TYPE NATRIURETIC PEPTIDE 8830 PG/ML (0-450)
[2018-08-26 07:26] LABS: FREE T4 (FREE THYROXINE) 1.22 ng/dl (0.78-2.44)
[2018-08-26] MEDS: VITAMIN B COMPLEX/VIT C CAP PO (10:16)
[2018-08-26] MEDS: FERROUS SULFATE 60 MG/ML 5ML CUP PO ×3 (10:16→21:47)
[2018-08-26] MEDS: MAGNESIUM OXIDE 400 MG TAB PO (10:17)
[2018-08-26] MEDS: COLLAGENASE 5 GM (UD JAR) TOP ×2 (10:17→21:49)
[2018-08-26] MEDS: FUROSEMIDE 20 MG TAB PO (10:18)
[2018-08-26] MEDS: ESCITALOPRAM 10 MG TAB PO (10:18)
[2018-08-26] MEDS: CALCIUM CARBONATE 500 MG CHEW TAB PO ×3 (10:18→20:01)
[2018-08-26] MEDS: NEOMYC/POLYMYX/BACIT 30 GM OINT TOP ×2 (10:19→21:50)
[2018-08-26] MEDS: NYSTATIN 30 GM POWDER BTL TOP ×2 (10:19→21:49)
[2018-08-26] MEDS: BALSAM PERU/CASTOR OIL 60 GM TUBE TOP (10:19)
[2018-08-26] MEDS: POTASSIUM CHLORIDE (SR) 20 MEQ TAB PO (12:28)
[2018-08-26] MEDS: metroNIDAZOLE 250 MG TAB PO ×2 (17:28→21:48)
[2018-08-26] MEDS: MEMANTINE 10 MG TAB PO (17:34)
[2018-08-26] MEDS: ATORVASTATIN 20 MG TAB PO (21:47)
[2018-08-27] MEDS: SUCRALFATE 1 GM TAB PO ×5 (00:15→23:41)
[2018-08-27] MEDS: D5W-0.45 NACL + KCL 20 MEQ 1,000 ML IV ×2 (01:40→13:55)
[2018-08-27] MEDS: HYDROmorphONE 2 MG/ML SYG IV (04:00)
[2018-08-27] MEDS: PANTOPRAZOLE (EC) 40 MG TAB PO ×2 (05:45→17:58)
[2018-08-27] MEDS: metroNIDAZOLE 250 MG TAB PO ×3 (05:45→21:00)
[2018-08-27] MEDS: COLLAGENASE 5 GM (UD JAR) TOP ×2 (08:30→20:58)
[2018-08-27] MEDS: NYSTATIN 30 GM POWDER BTL TOP ×2 (08:30→20:58)
[2018-08-27] MEDS: BALSAM PERU/CASTOR OIL 60 GM TUBE TOP (08:30)
[2018-08-27] MEDS: CALCIUM CARBONATE 500 MG CHEW TAB PO ×3 (08:30→17:58)
[2018-08-27] MEDS: VITAMIN B COMPLEX/VIT C CAP PO (08:30)
[2018-08-27] MEDS: ESCITALOPRAM 10 MG TAB PO (08:30)
[2018-08-27] MEDS: FERROUS SULFATE 60 MG/ML 5ML CUP PO ×3 (08:30→20:56)
[2018-08-27] MEDS: POTASSIUM CHLORIDE (SR) 20 MEQ TAB PO (08:31)
[2018-08-27] MEDS: NEOMYC/POLYMYX/BACIT 30 GM OINT TOP ×2 (08:31→20:57)
[2018-08-27] MEDS: MAGNESIUM OXIDE 400 MG TAB PO (08:31)
[2018-08-27] MEDS: FUROSEMIDE 20 MG TAB PO (08:31)
[2018-08-27] MEDS: HYDROCODONE/APAP (10/325) TAB PO ×2 (13:55→20:57)
[2018-08-27] MEDS: MEMANTINE 10 MG TAB PO (17:58)
[2018-08-27] MEDS: ATORVASTATIN 20 MG TAB PO (20:56)
[2018-08-27 21:07] LABS: PTH CALCIUM 7.8 mg/dL (8.6-10.4)
[2018-08-28] MEDS: D5W-0.45 NACL + KCL 20 MEQ 1,000 ML IV ×4 (03:25→21:29)
[2018-08-28] MEDS: HYDROCODONE/APAP (10/325) TAB PO (03:29)
[2018-08-28] MEDS: SUCRALFATE 1 GM TAB PO ×4 (06:12→23:31)
[2018-08-28] MEDS: PANTOPRAZOLE (EC) 40 MG TAB PO ×2 (06:12→17:47)
[2018-08-28] MEDS: metroNIDAZOLE 250 MG TAB PO ×3 (06:12→21:30)
[2018-08-28 07:51] LABS: PTH INTACT 116 pg/mL (14-64)
[2018-08-28] MEDS: FERROUS SULFATE 60 MG/ML 5ML CUP PO ×3 (08:46→20:45)
[2018-08-28] MEDS: VITAMIN B COMPLEX/VIT C CAP PO (08:46)
[2018-08-28] MEDS: CALCIUM CARBONATE 500 MG CHEW TAB PO ×3 (08:47→18:00)
[2018-08-28] MEDS: MAGNESIUM OXIDE 400 MG TAB PO (08:47)
[2018-08-28] MEDS: ESCITALOPRAM 10 MG TAB PO (08:47)
[2018-08-28] MEDS: NYSTATIN 30 GM POWDER BTL TOP ×2 (08:47→20:46)
[2018-08-28] MEDS: POTASSIUM CHLORIDE (SR) 20 MEQ TAB PO (08:47)
[2018-08-28] MEDS: NEOMYC/POLYMYX/BACIT 30 GM OINT TOP ×2 (08:47→20:46)
[2018-08-28] MEDS: BALSAM PERU/CASTOR OIL 60 GM TUBE TOP (08:48)
[2018-08-28] MEDS: COLLAGENASE 5 GM (UD JAR) TOP ×2 (08:48→20:47)
[2018-08-28] MEDS: MEMANTINE 10 MG TAB PO (17:47)
[2018-08-28] MEDS: ATORVASTATIN 20 MG TAB PO (20:46)
[2018-08-29] MEDS: VANCOMYCIN 1 GM (PMX) 250 ML IVPB (02:25)
[2018-08-29] MEDS: SUCRALFATE 1 GM TAB PO ×4 (05:46→23:53)
[2018-08-29] MEDS: metroNIDAZOLE 250 MG TAB PO ×3 (05:46→22:14)
[2018-08-29] MEDS: PANTOPRAZOLE (EC) 40 MG TAB PO ×2 (05:46→17:45)
[2018-08-29 06:12] LABS: ADD MAN DIFF? NO
[2018-08-29 06:15] LABS: ABNORMAL IP MESSAGE 1; BASOPHILS % 0.4 % (0.0-2.0); EOSINOPHILS # 0.3 10^3/ul (0.0-0.5); EOSINOPHILS % 3.6 % (0.0-7.0); HEMATOCRIT 31.2 % (37.0-47.0); HEMOGLOBIN 10.1 g/dl (12.0-16.0); LYMPHOCYTES # 0.6 10^3/ul (0.8-2.9); LYMPHOCYTES % 7.6 % (15.0-51.0); MEAN CORPUSCULAR HEMOGLOBIN 31.3 pg (29.0-33.0); MEAN CORPUSCULAR HGB CONC 32.4 g/dl (32.0-37.0); MEAN CORPUSCULAR VOLUME 96.6 fl (82.0-101.0); MEAN PLATELET VOLUME 12.1 fl (7.4-10.4); MONOCYTE # 0.4 10^3/ul (0.3-0.9); MONOCYTES % 4.7 % (0.0-11.0); NEUTROPHIL # 6.5 10^3/ul (1.6-7.5); NEUTROPHILS % 83.2 % (39.0-77.0); PLATELET COUNT 172 10^3/UL (140-415); RED BLOOD COUNT 3.23 10^6/ul (4.20-5.40); RED CELL DISTRIBUTION WIDTH 19.9 % (11.5-14.5)
[2018-08-29 06:15] LABS: WHITE BLOOD COUNT 7.8 10^3/ul (4.8-10.8)
[2018-08-29 06:23] LABS: POSITIVE DIFF @See below
[2018-08-29 07:14] LABS: ANION GAP 5 (5-13); BLOOD UREA NITROGEN 49 mg/dl (7-20); CALCIUM 8.2 mg/dl (8.4-10.2); CARBON DIOXIDE 20 mmol/L (21-31); CHLORIDE 110 mmol/L (97-110); CREATININE 1.75 mg/dl (0.44-1.00); GLUCOSE 110 mg/dl (70-220); POTASSIUM 4.6 mmol/L (3.5-5.1); SODIUM 135 mmol/L (135-144)
[2018-08-29] MEDS: COLLAGENASE 5 GM (UD JAR) TOP ×2 (08:35→20:52)
[2018-08-29] MEDS: FERROUS SULFATE 60 MG/ML 5ML CUP PO ×3 (08:36→20:51)
[2018-08-29] MEDS: VITAMIN B COMPLEX/VIT C CAP PO (08:36)
[2018-08-29] MEDS: POTASSIUM CHLORIDE (SR) 20 MEQ TAB PO (08:36)
[2018-08-29] MEDS: MAGNESIUM OXIDE 400 MG TAB PO (08:36)
[2018-08-29] MEDS: ESCITALOPRAM 10 MG TAB PO (08:36)
[2018-08-29] MEDS: CALCIUM CARBONATE 500 MG CHEW TAB PO ×3 (08:36→17:45)
[2018-08-29] MEDS: BALSAM PERU/CASTOR OIL 60 GM TUBE TOP (08:37)
[2018-08-29] MEDS: NEOMYC/POLYMYX/BACIT 30 GM OINT TOP ×2 (08:37→20:51)
[2018-08-29] MEDS: NYSTATIN 30 GM POWDER BTL TOP ×2 (08:37→20:51)
[2018-08-29] MEDS ORDERED: CEFUROXIME 250 MG TAB PO (09:00)
[2018-08-29] MEDS: HYDROmorphONE 2 MG/ML SYG IV (10:33)
[2018-08-29] MEDS: MEMANTINE 10 MG TAB PO (17:45)
[2018-08-29] MEDS: GUAIFENESIN/DM 5ML CUP PO (23:53)
[2018-08-30] MEDS: HYDROCODONE/APAP (10/325) TAB PO ×2 (00:16→23:37)
[2018-08-30] MEDS: metroNIDAZOLE 250 MG TAB PO (06:01)
[2018-08-30] MEDS: PANTOPRAZOLE (EC) 40 MG TAB PO ×2 (06:02→18:08)
[2018-08-30] MEDS: SUCRALFATE 1 GM TAB PO ×4 (06:02→23:37)
[2018-08-30] MEDS: FERROUS SULFATE 60 MG/ML 5ML CUP PO ×3 (09:02→21:12)
[2018-08-30] MEDS: CALCIUM CARBONATE 500 MG CHEW TAB PO ×3 (09:02→18:09)
[2018-08-30] MEDS: NYSTATIN 30 GM POWDER BTL TOP ×2 (09:03→21:19)
[2018-08-30] MEDS: ESCITALOPRAM 10 MG TAB PO (09:03)
[2018-08-30] MEDS: MAGNESIUM OXIDE 400 MG TAB PO (09:03)
[2018-08-30] MEDS: VITAMIN B COMPLEX/VIT C CAP PO (09:03)
[2018-08-30] MEDS: POTASSIUM CHLORIDE (SR) 20 MEQ TAB PO (09:03)
[2018-08-30] MEDS: L ACIDOPHIL/B LACTIS/B LONGUM CAPSULE PO ×2 (09:03→21:12)
[2018-08-30] MEDS: COLLAGENASE 5 GM (UD JAR) TOP ×2 (09:04→21:12)
[2018-08-30] MEDS: NEOMYC/POLYMYX/BACIT 30 GM OINT TOP ×2 (09:04→21:13)
[2018-08-30] MEDS: BALSAM PERU/CASTOR OIL 60 GM TUBE TOP (09:04)
[2018-08-30] MEDS: VANCOMYCIN HCL 250 MG/5ML POSYG PO ×4 (09:08→23:36)
[2018-08-30] MEDS: GUAIFENESIN/DM 5ML CUP PO (18:08)
[2018-08-30] MEDS: MEMANTINE 10 MG TAB PO (18:08)
[2018-08-31] MEDS: VANCOMYCIN HCL 250 MG/5ML POSYG PO ×4 (05:44→23:11)
[2018-08-31] MEDS: PANTOPRAZOLE (EC) 40 MG TAB PO ×2 (05:45→17:47)
[2018-08-31] MEDS: SUCRALFATE 1 GM TAB PO ×4 (05:45→23:11)
[2018-08-31 05:54] LABS: ADD MAN DIFF? NO
[2018-08-31 06:01] LABS: BASOPHILS % 0.1 % (0.0-2.0); EOSINOPHILS # 0.1 10^3/ul (0.0-0.5); EOSINOPHILS % 1.9 % (0.0-7.0); HEMATOCRIT 28.6 % (37.0-47.0); HEMOGLOBIN 9.3 g/dl (12.0-16.0); LYMPHOCYTES # 0.7 10^3/ul (0.8-2.9); LYMPHOCYTES % 9.8 % (15.0-51.0); MEAN CORPUSCULAR HEMOGLOBIN 31.4 pg (29.0-33.0); MEAN CORPUSCULAR HGB CONC 32.5 g/dl (32.0-37.0); MEAN CORPUSCULAR VOLUME 96.6 fl (82.0-101.0); MEAN PLATELET VOLUME 11.9 fl (7.4-10.4); MONOCYTE # 0.3 10^3/ul (0.3-0.9); MONOCYTES % 4.7 % (0.0-11.0); NEUTROPHILS % 82.8 % (39.0-77.0); PLATELET COUNT 179 10^3/UL (140-415); RED BLOOD COUNT 2.96 10^6/ul (4.20-5.40); RED CELL DISTRIBUTION WIDTH 19.8 % (11.5-14.5)
[2018-08-31 06:01] LABS: WHITE BLOOD COUNT 7.2 10^3/ul (4.8-10.8)
[2018-08-31 06:38] LABS: ANION GAP 6 (5-13); BLOOD UREA NITROGEN 44 mg/dl (7-20); CALCIUM 8.4 mg/dl (8.4-10.2); CARBON DIOXIDE 17 mmol/L (21-31); CHLORIDE 114 mmol/L (97-110); CREATININE 1.82 mg/dl (0.44-1.00); GLUCOSE 81 mg/dl (70-220); POTASSIUM 4.7 mmol/L (3.5-5.1); SODIUM 137 mmol/L (135-144)
[2018-08-31 08:45] LABS: ADD UMIC YES; UR AMORPHOUS CRYSTAL MANY /HPF (NONE SEEN); UR ASCORBIC ACID NEGATIVE (NEGATIVE); UR BACTERIA FEW /HPF (NONE SEEN); UR BILIRUBIN (Dip) NEGATIVE (NEGATIVE); UR BLOOD (Dip) NEGATIVE (NEGATIVE); UR CLARITY CLOUDY (CLEAR); UR COLOR AMBER (YELLOW); UR GLUCOSE (Dip) NEGATIVE (NEGATIVE); UR KETONES (Dip) NEGATIVE (NEGATIVE); UR LEUKOCYTE ESTERASE (Dip) 3+ Leu/ul (NEGATIVE); UR NITRITE (Dip) POSITIVE (NEGATIVE); UR RBC 8 /HPF (0-5); UR SPECIFIC GRAVITY (Dip) 1.014 (1.003-1.030); UR SQUAMOUS EPITHELIAL CELL FEW /HPF (FEW); UR TOTAL PROTEIN (Dip) 1+ mg/dl (NEGATIVE); UR UROBILINOGEN (Dip) NEGATIVE (NEGATIVE); UR WBC > 182 /HPF (0-5)
[2018-08-31] MEDS: ESCITALOPRAM 10 MG TAB PO (08:55)
[2018-08-31] MEDS: L ACIDOPHIL/B LACTIS/B LONGUM CAPSULE PO ×2 (08:55→21:23)
[2018-08-31] MEDS: MAGNESIUM OXIDE 400 MG TAB PO (08:55)
[2018-08-31] MEDS: POTASSIUM CHLORIDE (SR) 20 MEQ TAB PO (08:56)
[2018-08-31] MEDS: CALCIUM CARBONATE 500 MG CHEW TAB PO ×3 (08:56→17:47)
[2018-08-31] MEDS: BALSAM PERU/CASTOR OIL 60 GM TUBE TOP (08:56)
[2018-08-31] MEDS: NYSTATIN 30 GM POWDER BTL TOP ×2 (08:56→21:29)
[2018-08-31] MEDS: FERROUS SULFATE 60 MG/ML 5ML CUP PO ×3 (08:56→21:23)
[2018-08-31] MEDS: VITAMIN B COMPLEX/VIT C CAP PO (08:56)
[2018-08-31] MEDS: NEOMYC/POLYMYX/BACIT 30 GM OINT TOP ×2 (08:56→21:29)
[2018-08-31] MEDS: COLLAGENASE 5 GM (UD JAR) TOP ×2 (08:56→21:28)
[2018-08-31] MEDS: MEMANTINE 10 MG TAB PO (17:47)
[2018-08-31] MEDS: GUAIFENESIN/DM 5ML CUP PO (21:38)
[2018-09-01] MEDS: GUAIFENESIN/DM 5ML CUP PO (05:54)
[2018-09-01] MEDS: VANCOMYCIN HCL 250 MG/5ML POSYG PO ×3 (05:54→18:01)
[2018-09-01] MEDS: PANTOPRAZOLE (EC) 40 MG TAB PO ×2 (05:55→17:19)
[2018-09-01] MEDS: SUCRALFATE 1 GM TAB PO ×3 (05:55→17:20)
[2018-09-01] MEDS: COLLAGENASE 5 GM (UD JAR) TOP ×2 (08:59→21:56)
[2018-09-01] MEDS: ESCITALOPRAM 10 MG TAB PO (08:59)
[2018-09-01] MEDS: MAGNESIUM OXIDE 400 MG TAB PO (08:59)
[2018-09-01] MEDS: FERROUS SULFATE 60 MG/ML 5ML CUP PO ×3 (08:59→21:54)
[2018-09-01] MEDS: BALSAM PERU/CASTOR OIL 60 GM TUBE TOP (09:00)
[2018-09-01] MEDS: L ACIDOPHIL/B LACTIS/B LONGUM CAPSULE PO ×2 (09:00→21:54)
[2018-09-01] MEDS: POTASSIUM CHLORIDE (SR) 20 MEQ TAB PO (09:00)
[2018-09-01] MEDS: CALCIUM CARBONATE 500 MG CHEW TAB PO ×3 (09:00→18:01)
[2018-09-01] MEDS: NEOMYC/POLYMYX/BACIT 30 GM OINT TOP ×2 (09:01→21:57)
[2018-09-01] MEDS: NYSTATIN 30 GM POWDER BTL TOP ×2 (09:01→21:56)
[2018-09-01] MEDS: VITAMIN B COMPLEX/VIT C CAP PO (09:26)
[2018-09-01] MEDS: MEMANTINE 10 MG TAB PO (16:25)
[2018-09-02] MEDS: SUCRALFATE 1 GM TAB PO ×4 (03:05→17:11)
[2018-09-02] MEDS: VANCOMYCIN HCL 250 MG/5ML POSYG PO ×4 (03:05→17:15)
[2018-09-02] MEDS: PANTOPRAZOLE (EC) 40 MG TAB PO ×2 (05:40→17:11)
[2018-09-02] MEDS: FERROUS SULFATE 60 MG/ML 5ML CUP PO ×3 (09:19→21:29)
[2018-09-02] MEDS: HYDROCODONE/APAP (10/325) TAB PO ×2 (09:19→15:37)
[2018-09-02] MEDS: CALCIUM CARBONATE 500 MG CHEW TAB PO ×3 (09:19→17:15)
[2018-09-02] MEDS: ESCITALOPRAM 10 MG TAB PO (09:19)
[2018-09-02] MEDS: POTASSIUM CHLORIDE (SR) 20 MEQ TAB PO (09:20)
[2018-09-02] MEDS: L ACIDOPHIL/B LACTIS/B LONGUM CAPSULE PO ×2 (09:20→21:29)
[2018-09-02] MEDS: VITAMIN B COMPLEX/VIT C CAP PO (09:20)
[2018-09-02] MEDS: MAGNESIUM OXIDE 400 MG TAB PO (09:20)
[2018-09-02] MEDS: NEOMYC/POLYMYX/BACIT 30 GM OINT TOP ×2 (09:21→21:30)
[2018-09-02] MEDS: COLLAGENASE 5 GM (UD JAR) TOP ×2 (09:21→21:30)
[2018-09-02] MEDS: NYSTATIN 30 GM POWDER BTL TOP ×2 (09:21→21:30)
[2018-09-02] MEDS: BALSAM PERU/CASTOR OIL 60 GM TUBE TOP (09:22)
[2018-09-02] MEDS: BARIUM SULFATE 135 ML (E-Z HD) PO (11:29)
[2018-09-02] MEDS: PETROLATUM 28.35 GM JELLY TOP (15:37)
[2018-09-02] MEDS: GUAIFENESIN/DM 5ML CUP PO (15:37)
[2018-09-02] MEDS: MEMANTINE 10 MG TAB PO (17:11)
[2018-09-03] MEDS: VANCOMYCIN HCL 250 MG/5ML POSYG PO ×4 (00:22→17:52)
[2018-09-03] MEDS: SUCRALFATE 1 GM TAB PO ×4 (00:22→17:52)
[2018-09-03] MEDS: HYDROCODONE/APAP (10/325) TAB PO (00:42)
[2018-09-03] MEDS: PANTOPRAZOLE (EC) 40 MG TAB PO ×2 (05:46→17:52)
[2018-09-03 06:41] LABS: ADD MAN DIFF? NO
[2018-09-03 06:44] LABS: WHITE BLOOD COUNT 6.9 10^3/ul (4.8-10.8)
[2018-09-03 06:44] LABS: BASOPHILS % 0.3 % (0.0-2.0); EOSINOPHILS # 0.2 10^3/ul (0.0-0.5); EOSINOPHILS % 2.5 % (0.0-7.0); HEMATOCRIT 29.6 % (37.0-47.0); HEMOGLOBIN 9.6 g/dl (12.0-16.0); LYMPHOCYTES # 0.8 10^3/ul (0.8-2.9); LYMPHOCYTES % 12.2 % (15.0-51.0); MEAN CORPUSCULAR HEMOGLOBIN 31.7 pg (29.0-33.0); MEAN CORPUSCULAR HGB CONC 32.4 g/dl (32.0-37.0); MEAN CORPUSCULAR VOLUME 97.7 fl (82.0-101.0); MEAN PLATELET VOLUME 11.4 fl (7.4-10.4); MONOCYTE # 0.4 10^3/ul (0.3-0.9); MONOCYTES % 5.5 % (0.0-11.0); NEUTROPHIL # 5.4 10^3/ul (1.6-7.5); NEUTROPHILS % 78.3 % (39.0-77.0); PLATELET COUNT 217 10^3/UL (140-415); RED BLOOD COUNT 3.03 10^6/ul (4.20-5.40); RED CELL DISTRIBUTION WIDTH 20.4 % (11.5-14.5)
[2018-09-03 07:19] LABS: ANION GAP 6 (5-13); BLOOD UREA NITROGEN 37 mg/dl (7-20); CALCIUM 8.4 mg/dl (8.4-10.2); CARBON DIOXIDE 18 mmol/L (21-31); CHLORIDE 113 mmol/L (97-110); CREATININE 1.78 mg/dl (0.44-1.00); GLUCOSE 83 mg/dl (70-220); MAGNESIUM 2.4 mg/dl (1.7-2.5); POTASSIUM 4.9 mmol/L (3.5-5.1); SODIUM 137 mmol/L (135-144)
[2018-09-03] MEDS: ESCITALOPRAM 10 MG TAB PO (08:56)
[2018-09-03] MEDS: FERROUS SULFATE 60 MG/ML 5ML CUP PO ×3 (08:56→20:22)
[2018-09-03] MEDS: COLLAGENASE 5 GM (UD JAR) TOP ×2 (08:56→20:23)
[2018-09-03] MEDS: POTASSIUM CHLORIDE (SR) 20 MEQ TAB PO (08:57)
[2018-09-03] MEDS: L ACIDOPHIL/B LACTIS/B LONGUM CAPSULE PO ×2 (08:57→20:22)
[2018-09-03] MEDS: NYSTATIN 30 GM POWDER BTL TOP ×2 (08:58→20:23)
[2018-09-03] MEDS: CALCIUM CARBONATE 500 MG CHEW TAB PO ×3 (08:58→18:02)
[2018-09-03] MEDS: MAGNESIUM OXIDE 400 MG TAB PO (08:58)
[2018-09-03] MEDS: VITAMIN B COMPLEX/VIT C CAP PO (08:58)
[2018-09-03] MEDS: BALSAM PERU/CASTOR OIL 60 GM TUBE TOP (08:59)
[2018-09-03] MEDS: NEOMYC/POLYMYX/BACIT 30 GM OINT TOP ×2 (08:59→20:23)
[2018-09-03] MEDS: MEMANTINE 10 MG TAB PO (17:52)
[2018-09-03] MEDS: DIPHENOXYLATE/ATROPINE TAB PO (20:22)
[2018-09-03] MEDS: GUAIFENESIN/DM 5ML CUP PO (20:27)
[2018-09-04] MEDS: VANCOMYCIN HCL 250 MG/5ML POSYG PO ×5 (00:32→22:55)
[2018-09-04] MEDS: SUCRALFATE 1 GM TAB PO ×5 (00:32→22:55)
[2018-09-04] MEDS: GUAIFENESIN/CODEINE 5ML CUP PO ×2 (00:32→22:50)
[2018-09-04] MEDS: LEVALBUTEROL (NEB) 0.63 MG/3 ML AMP HHN (01:29)
[2018-09-04] MEDS: DIPHENOXYLATE/ATROPINE TAB PO ×4 (01:29→22:49)
[2018-09-04] MEDS: PETROLATUM 28.35 GM JELLY TOP (02:00)
[2018-09-04] MEDS: PANTOPRAZOLE (EC) 40 MG TAB PO ×2 (06:08→17:43)
[2018-09-04] MEDS: COLLAGENASE 5 GM (UD JAR) TOP ×2 (09:14→22:49)
[2018-09-04] MEDS: L ACIDOPHIL/B LACTIS/B LONGUM CAPSULE PO ×2 (09:14→22:49)
[2018-09-04] MEDS: FERROUS SULFATE 60 MG/ML 5ML CUP PO ×3 (09:14→22:49)
[2018-09-04] MEDS: VITAMIN B COMPLEX/VIT C CAP PO (09:14)
[2018-09-04] MEDS: CALCIUM CARBONATE 500 MG CHEW TAB PO ×3 (09:14→18:09)
[2018-09-04] MEDS: ESCITALOPRAM 10 MG TAB PO (09:15)
[2018-09-04] MEDS: NEOMYC/POLYMYX/BACIT 30 GM OINT TOP ×2 (09:15→21:00)
[2018-09-04] MEDS: MAGNESIUM OXIDE 400 MG TAB PO (09:15)
[2018-09-04] MEDS: BALSAM PERU/CASTOR OIL 60 GM TUBE TOP (09:15)
[2018-09-04] MEDS: POTASSIUM CHLORIDE (SR) 20 MEQ TAB PO (09:15)
[2018-09-04] MEDS: NYSTATIN 30 GM POWDER BTL TOP ×2 (09:17→22:49)
[2018-09-04] MEDS: GUAIFENESIN/DM 5ML CUP PO ×2 (12:37→17:46)
[2018-09-04] MEDS: FUROSEMIDE 20 MG TAB PO (17:43)
[2018-09-04] MEDS: MEMANTINE 10 MG TAB PO (17:43)
[2018-09-04] MEDS: METOCLOPRAMIDE 5 MG TAB PO (22:49)
[2018-09-05] MEDS: LEVALBUTEROL (NEB) 0.63 MG/3 ML AMP HHN
[2018-09-05] MEDS: DIPHENOXYLATE/ATROPINE TAB PO ×4 (04:04→21:57)
[2018-09-05] MEDS: HYDROmorphONE 2 MG/ML SYG IV ×2 (04:47→11:53)
[2018-09-05] MEDS: SUCRALFATE 1 GM TAB PO ×4 (04:47→23:44)
[2018-09-05] MEDS: PANTOPRAZOLE (EC) 40 MG TAB PO ×2 (04:47→18:18)
[2018-09-05 06:01] LABS: HEMATOCRIT 31.5 % (37.0-47.0); HEMOGLOBIN 10.2 g/dl (12.0-16.0)
[2018-09-05 06:23] LABS: ANION GAP 6 (5-13); BLOOD UREA NITROGEN 36 mg/dl (7-20); CALCIUM 8.6 mg/dl (8.4-10.2); CARBON DIOXIDE 19 mmol/L (21-31); CHLORIDE 112 mmol/L (97-110); CREATININE 1.88 mg/dl (0.44-1.00); GLUCOSE 133 mg/dl (70-220); POTASSIUM 4.8 mmol/L (3.5-5.1); SODIUM 137 mmol/L (135-144)
[2018-09-05 06:35] LABS: MAGNESIUM 2.4 mg/dl (1.7-2.5)
[2018-09-05] MEDS: NYSTATIN 30 GM POWDER BTL TOP ×2 (09:34→21:58)
[2018-09-05] MEDS: COLLAGENASE 5 GM (UD JAR) TOP ×2 (09:34→21:58)
[2018-09-05] MEDS: NEOMYC/POLYMYX/BACIT 30 GM OINT TOP ×2 (09:35→21:58)
[2018-09-05] MEDS: BALSAM PERU/CASTOR OIL 60 GM TUBE TOP (09:35)
[2018-09-05] MEDS: CALCIUM CARBONATE 500 MG CHEW TAB PO ×3 (09:36→18:18)
[2018-09-05] MEDS: FUROSEMIDE 20 MG TAB PO (09:36)
[2018-09-05] MEDS: MAGNESIUM OXIDE 400 MG TAB PO (09:36)
[2018-09-05] MEDS: L ACIDOPHIL/B LACTIS/B LONGUM CAPSULE PO ×2 (09:36→21:56)
[2018-09-05] MEDS: FERROUS SULFATE 60 MG/ML 5ML CUP PO ×3 (09:36→21:56)
[2018-09-05] MEDS: VITAMIN B COMPLEX/VIT C CAP PO (09:36)
[2018-09-05] MEDS: METOCLOPRAMIDE 5 MG TAB PO ×3 (09:36→21:57)
[2018-09-05] MEDS: SERTRALINE 50 MG TAB PO (09:36)
[2018-09-05] MEDS: GUAIFENESIN/CODEINE 5ML CUP PO (09:54)
[2018-09-05] MEDS: MEMANTINE 10 MG TAB PO (18:18)
[2018-09-06] MEDS: DIPHENOXYLATE/ATROPINE TAB PO ×4 (02:52→20:28)
[2018-09-06] MEDS: SUCRALFATE 1 GM TAB PO ×4 (06:51→23:55)
[2018-09-06] MEDS: PANTOPRAZOLE (EC) 40 MG TAB PO ×2 (06:51→17:31)
[2018-09-06] MEDS: L ACIDOPHIL/B LACTIS/B LONGUM CAPSULE PO ×2 (09:11→20:27)
[2018-09-06] MEDS: METOCLOPRAMIDE 5 MG TAB PO ×3 (09:11→20:28)
[2018-09-06] MEDS: VITAMIN B COMPLEX/VIT C CAP PO (09:11)
[2018-09-06] MEDS: MAGNESIUM OXIDE 400 MG TAB PO (09:11)
[2018-09-06] MEDS: CALCIUM CARBONATE 500 MG CHEW TAB PO ×3 (09:11→17:38)
[2018-09-06] MEDS: FERROUS SULFATE 60 MG/ML 5ML CUP PO ×3 (09:11→20:28)
[2018-09-06] MEDS: FUROSEMIDE 20 MG TAB PO (09:14)
[2018-09-06] MEDS: SERTRALINE 50 MG TAB PO (09:14)
[2018-09-06] MEDS: COLLAGENASE 5 GM (UD JAR) TOP ×2 (09:16→20:27)
[2018-09-06] MEDS: NEOMYC/POLYMYX/BACIT 30 GM OINT TOP ×2 (09:16→20:28)
[2018-09-06] MEDS: NYSTATIN 30 GM POWDER BTL TOP ×2 (09:16→21:25)
[2018-09-06] MEDS: BALSAM PERU/CASTOR OIL 60 GM TUBE TOP (09:16)
[2018-09-06] MEDS: SOD CHLORIDE 0.9% 1,000 ML IV (09:30)
[2018-09-06] MEDS: MEMANTINE 10 MG TAB PO (17:31)
[2018-09-06] MEDS: ACCU-CHEK XX (20:29)
[2018-09-07] MEDS: DIPHENOXYLATE/ATROPINE TAB PO ×4 (02:31→20:29)
[2018-09-07] MEDS: SOD CHLORIDE 0.9% 1,000 ML IV ×2 (05:30→18:07)
[2018-09-07] MEDS: SUCRALFATE 1 GM TAB PO ×3 (06:17→18:00)
[2018-09-07] MEDS: PANTOPRAZOLE (EC) 40 MG TAB PO ×2 (06:17→18:04)
[2018-09-07] MEDS: VITAMIN B COMPLEX/VIT C CAP PO (08:31)
[2018-09-07] MEDS: MAGNESIUM OXIDE 400 MG TAB PO (08:31)
[2018-09-07] MEDS: L ACIDOPHIL/B LACTIS/B LONGUM CAPSULE PO ×2 (08:31→20:24)
[2018-09-07] MEDS: CALCIUM CARBONATE 500 MG CHEW TAB PO ×3 (08:31→18:00)
[2018-09-07] MEDS: FERROUS SULFATE 60 MG/ML 5ML CUP PO ×3 (08:31→20:24)
[2018-09-07] MEDS: COLLAGENASE 5 GM (UD JAR) TOP ×2 (08:32→20:26)
[2018-09-07] MEDS: FUROSEMIDE 20 MG TAB PO (08:32)
[2018-09-07] MEDS: SERTRALINE 50 MG TAB PO (08:32)
[2018-09-07] MEDS: NYSTATIN 30 GM POWDER BTL TOP ×2 (08:32→20:25)
[2018-09-07] MEDS: METOCLOPRAMIDE 5 MG TAB PO ×3 (08:32→20:24)
[2018-09-07] MEDS: NEOMYC/POLYMYX/BACIT 30 GM OINT TOP ×2 (08:33→20:26)
[2018-09-07] MEDS: BALSAM PERU/CASTOR OIL 60 GM TUBE TOP (08:34)
[2018-09-07] MEDS: ACCU-CHEK XX ×2 (08:52→20:30)
[2018-09-07] MEDS: MEMANTINE 10 MG TAB PO (17:59)
[2018-09-07 19:59] LABS: ADD UMIC YES; UR AMORPHOUS CRYSTAL MODERATE /HPF (NONE SEEN); UR ASCORBIC ACID NEGATIVE (NEGATIVE); UR BACTERIA MODERATE /HPF (NONE SEEN); UR BILIRUBIN (Dip) NEGATIVE (NEGATIVE); UR BLOOD (Dip) NEGATIVE (NEGATIVE); UR CLARITY TURBID (CLEAR); UR COLOR AMBER (YELLOW); UR GLUCOSE (Dip) NEGATIVE (NEGATIVE); UR KETONES (Dip) NEGATIVE (NEGATIVE); UR LEUKOCYTE ESTERASE (Dip) 3+ Leu/ul (NEGATIVE); UR MUCUS FEW /HPF (NONE SEEN); UR NITRITE (Dip) NEGATIVE (NEGATIVE); UR NONSQUAMOUS EPITHELIAL CELL 1 /HPF (NONE SEEN); UR RBC 18 /HPF (0-5); UR SPECIFIC GRAVITY (Dip) 1.013 (1.003-1.030); UR SQUAMOUS EPITHELIAL CELL FEW /HPF (FEW); UR TOTAL PROTEIN (Dip) 2+ mg/dl (NEGATIVE); UR UROBILINOGEN (Dip) NEGATIVE (NEGATIVE); UR WBC 81 /HPF (0-5)
[2018-09-08] MEDS: SUCRALFATE 1 GM TAB PO ×4 (00:13→17:53)
[2018-09-08] MEDS: DIPHENOXYLATE/ATROPINE TAB PO ×4 (02:24→20:00)
[2018-09-08] MEDS: PANTOPRAZOLE (EC) 40 MG TAB PO ×2 (05:44→17:53)
[2018-09-08 06:22] LABS: ADD MAN DIFF? NO
[2018-09-08 06:33] LABS: WHITE BLOOD COUNT 10.8 10^3/ul (4.8-10.8)
[2018-09-08 06:33] LABS: BASOPHILS % 0.4 % (0.0-2.0); EOSINOPHILS # 0.1 10^3/ul (0.0-0.5); EOSINOPHILS % 0.7 % (0.0-7.0); HEMATOCRIT 29.7 % (37.0-47.0); LYMPHOCYTES # 1.1 10^3/ul (0.8-2.9); MEAN CORPUSCULAR HEMOGLOBIN 31.5 pg (29.0-33.0); MEAN CORPUSCULAR HGB CONC 33.7 g/dl (32.0-37.0); MEAN CORPUSCULAR VOLUME 93.7 fl (82.0-101.0); MEAN PLATELET VOLUME 11.3 fl (7.4-10.4); MONOCYTE # 0.5 10^3/ul (0.3-0.9); MONOCYTES % 4.9 % (0.0-11.0); NEUTROPHILS % 83.3 % (39.0-77.0); PLATELET COUNT 229 10^3/UL (140-415); RED BLOOD COUNT 3.17 10^6/ul (4.20-5.40); RED CELL DISTRIBUTION WIDTH 19.7 % (11.5-14.5)
[2018-09-08 07:14] LABS: ANION GAP 6 (5-13); BLOOD UREA NITROGEN 35 mg/dl (7-20); CALCIUM 8.4 mg/dl (8.4-10.2); CARBON DIOXIDE 20 mmol/L (21-31); CHLORIDE 111 mmol/L (97-110); CREATININE 2.02 mg/dl (0.44-1.00); GLUCOSE 91 mg/dl (70-220); MAGNESIUM 2.4 mg/dl (1.7-2.5); POTASSIUM 4.2 mmol/L (3.5-5.1); SODIUM 137 mmol/L (135-144)
[2018-09-08] MEDS: FERROUS SULFATE 60 MG/ML 5ML CUP PO ×3 (09:06→21:02)
[2018-09-08] MEDS: VITAMIN B COMPLEX/VIT C CAP PO (09:07)
[2018-09-08] MEDS: MAGNESIUM OXIDE 400 MG TAB PO (09:07)
[2018-09-08] MEDS: CALCIUM CARBONATE 500 MG CHEW TAB PO ×3 (09:07→19:02)
[2018-09-08] MEDS: SERTRALINE 50 MG TAB PO (09:07)
[2018-09-08] MEDS: L ACIDOPHIL/B LACTIS/B LONGUM CAPSULE PO ×2 (09:07→21:02)
[2018-09-08] MEDS: METOCLOPRAMIDE 5 MG TAB PO ×3 (09:07→21:02)
[2018-09-08] MEDS: FUROSEMIDE 20 MG TAB PO (09:07)
[2018-09-08] MEDS: NEOMYC/POLYMYX/BACIT 30 GM OINT TOP ×2 (09:08→21:06)
[2018-09-08] MEDS: COLLAGENASE 5 GM (UD JAR) TOP ×2 (09:08→21:05)
[2018-09-08] MEDS: NYSTATIN 30 GM POWDER BTL TOP ×2 (09:08→21:04)
[2018-09-08] MEDS: ACCU-CHEK XX ×2 (10:12→21:00)
[2018-09-08] MEDS: BALSAM PERU/CASTOR OIL 60 GM TUBE TOP (12:48)
[2018-09-08] MEDS: SOD CHLORIDE 0.9% 1,000 ML IV (15:05)
[2018-09-08] MEDS: MEMANTINE 10 MG TAB PO (17:53)
[2018-09-09] MEDS: SUCRALFATE 1 GM TAB PO ×4 (00:12→17:29)
[2018-09-09] MEDS: DIPHENOXYLATE/ATROPINE TAB PO ×4 (03:57→20:36)
[2018-09-09] MEDS: PANTOPRAZOLE (EC) 40 MG TAB PO ×2 (04:52→17:29)
[2018-09-09] MEDS: CALCIUM CARBONATE 500 MG CHEW TAB PO ×3 (09:38→20:19)
[2018-09-09] MEDS: METOCLOPRAMIDE 5 MG TAB PO ×3 (09:38→20:18)
[2018-09-09] MEDS: VITAMIN B COMPLEX/VIT C CAP PO (09:38)
[2018-09-09] MEDS: SERTRALINE 50 MG TAB PO (09:38)
[2018-09-09] MEDS: MAGNESIUM OXIDE 400 MG TAB PO (09:38)
[2018-09-09] MEDS: L ACIDOPHIL/B LACTIS/B LONGUM CAPSULE PO ×2 (09:38→20:18)
[2018-09-09] MEDS: FERROUS SULFATE 60 MG/ML 5ML CUP PO ×3 (09:38→20:18)
[2018-09-09] MEDS: BALSAM PERU/CASTOR OIL 60 GM TUBE TOP (09:38)
[2018-09-09] MEDS: COLLAGENASE 5 GM (UD JAR) TOP ×2 (09:38→20:23)
[2018-09-09] MEDS: FUROSEMIDE 20 MG TAB PO (09:38)
[2018-09-09] MEDS: ACCU-CHEK XX ×2 (09:39→20:36)
[2018-09-09] MEDS: NYSTATIN 30 GM POWDER BTL TOP ×2 (09:40→20:22)
[2018-09-09] MEDS: NEOMYC/POLYMYX/BACIT 30 GM OINT TOP ×2 (09:40→20:23)
[2018-09-09] MEDS: SOD CHLORIDE 0.9% 1,000 ML IV (09:46)
[2018-09-09] MEDS: MEMANTINE 10 MG TAB PO (17:29)
[2018-09-10] MEDS: SUCRALFATE 1 GM TAB PO ×4 (00:27→18:30)
[2018-09-10] MEDS: DIPHENOXYLATE/ATROPINE TAB PO ×4 (02:31→20:39)
[2018-09-10] MEDS: PANTOPRAZOLE (EC) 40 MG TAB PO ×2 (05:40→18:30)
[2018-09-10] MEDS: SOD CHLORIDE 0.9% 1,000 ML IV (05:42)
[2018-09-10] MEDS: FERROUS SULFATE 60 MG/ML 5ML CUP PO ×3 (09:21→20:38)
[2018-09-10] MEDS: SERTRALINE 50 MG TAB PO (09:22)
[2018-09-10] MEDS: VITAMIN B COMPLEX/VIT C CAP PO (09:22)
[2018-09-10] MEDS: FUROSEMIDE 20 MG TAB PO (09:22)
[2018-09-10] MEDS: METOCLOPRAMIDE 5 MG TAB PO ×3 (09:22→20:39)
[2018-09-10] MEDS: L ACIDOPHIL/B LACTIS/B LONGUM CAPSULE PO ×2 (09:22→20:39)
[2018-09-10] MEDS: MAGNESIUM OXIDE 400 MG TAB PO (09:22)
[2018-09-10] MEDS: CALCIUM CARBONATE 500 MG CHEW TAB PO ×3 (09:22→18:30)
[2018-09-10] MEDS: COLLAGENASE 5 GM (UD JAR) TOP ×2 (09:23→20:40)
[2018-09-10] MEDS: BALSAM PERU/CASTOR OIL 60 GM TUBE TOP (09:23)
[2018-09-10] MEDS: NYSTATIN 30 GM POWDER BTL TOP ×2 (09:23→20:40)
[2018-09-10] MEDS: NEOMYC/POLYMYX/BACIT 30 GM OINT TOP ×2 (09:24→20:40)
[2018-09-10] MEDS: ACCU-CHEK XX ×2 (09:24→20:48)
[2018-09-10] MEDS: MEMANTINE 10 MG TAB PO (17:00)
[2018-09-11] MEDS: DIPHENOXYLATE/ATROPINE TAB PO ×4 (02:00→20:43)
[2018-09-11 05:46] LABS: ADD MAN DIFF? NO
[2018-09-11 05:49] LABS: BASOPHILS % 0.3 % (0.0-2.0); EOSINOPHILS # 0.1 10^3/ul (0.0-0.5); HEMATOCRIT 27.4 % (37.0-47.0); HEMOGLOBIN 9.3 g/dl (12.0-16.0); LYMPHOCYTES # 0.9 10^3/ul (0.8-2.9); LYMPHOCYTES % 7.3 % (15.0-51.0); MEAN CORPUSCULAR HEMOGLOBIN 31.6 pg (29.0-33.0); MEAN CORPUSCULAR HGB CONC 33.9 g/dl (32.0-37.0); MEAN CORPUSCULAR VOLUME 93.2 fl (82.0-101.0); MEAN PLATELET VOLUME 11.5 fl (7.4-10.4); MONOCYTE # 0.7 10^3/ul (0.3-0.9); MONOCYTES % 5.1 % (0.0-11.0); NEUTROPHILS % 85.4 % (39.0-77.0); PLATELET COUNT 179 10^3/UL (140-415); RED BLOOD COUNT 2.94 10^6/ul (4.20-5.40); RED CELL DISTRIBUTION WIDTH 19.8 % (11.5-14.5)
[2018-09-11 05:49] LABS: WHITE BLOOD COUNT 12.9 10^3/ul (4.8-10.8)
[2018-09-11 06:17] LABS: ALANINE AMINOTRANSFERASE 28 IU/L (13-69); ALBUMIN 1.9 g/dl (3.3-4.9); ALBUMIN/GLOBULIN RATIO 0.82; ALKALINE PHOSPHATASE 166 IU/L (42-121); ANION GAP 6 (5-13); ASPARTATE AMINO TRANSFERASE 18 IU/L (15-46); BILIRUBIN,INDIRECT 0.4 mg/dl (0-1.1); BILIRUBIN,TOTAL 0.4 mg/dl (0.2-1.3); BLOOD UREA NITROGEN 36 mg/dl (7-20); CALCIUM 8.5 mg/dl (8.4-10.2); CARBON DIOXIDE 20 mmol/L (21-31); CHLORIDE 111 mmol/L (97-110); CREATININE 2.21 mg/dl (0.44-1.00); GLUCOSE 95 mg/dl (70-220); POTASSIUM 3.9 mmol/L (3.5-5.1); SODIUM 137 mmol/L (135-144); TOTAL PROTEIN 4.2 g/dl (6.1-8.1)
[2018-09-11] MEDS: PANTOPRAZOLE (EC) 40 MG TAB PO ×2 (06:18→17:20)
[2018-09-11] MEDS: SUCRALFATE 1 GM TAB PO ×4 (06:18→17:20)
[2018-09-11 06:56] LABS: ERYTHROCYTE SEDIMENTATION RATE 2 mm/Hr (0-30)
[2018-09-11 08:27] LABS: PREALBUMIN 3.3 mg/dl (17.6-36.0)
[2018-09-11] MEDS: NEOMYC/POLYMYX/BACIT 30 GM OINT TOP ×2 (09:00→20:45)
[2018-09-11] MEDS: VITAMIN B COMPLEX/VIT C CAP PO (09:06)
[2018-09-11] MEDS: MAGNESIUM OXIDE 400 MG TAB PO (09:06)
[2018-09-11] MEDS: FUROSEMIDE 20 MG TAB PO (09:06)
[2018-09-11] MEDS: COLLAGENASE 5 GM (UD JAR) TOP ×2 (09:06→20:45)
[2018-09-11] MEDS: FERROUS SULFATE 60 MG/ML 5ML CUP PO ×3 (09:06→20:43)
[2018-09-11] MEDS: CALCIUM CARBONATE 500 MG CHEW TAB PO ×3 (09:07→18:47)
[2018-09-11] MEDS: METOCLOPRAMIDE 5 MG TAB PO ×3 (09:07→20:44)
[2018-09-11] MEDS: SOD CHLORIDE 0.9% 1,000 ML IV (09:07)
[2018-09-11] MEDS: SERTRALINE 50 MG TAB PO (09:07)
[2018-09-11] MEDS: L ACIDOPHIL/B LACTIS/B LONGUM CAPSULE PO ×2 (09:07→20:43)
[2018-09-11] MEDS: ACCU-CHEK XX ×2 (09:07→20:45)
[2018-09-11] MEDS: NYSTATIN 30 GM POWDER BTL TOP ×2 (09:08→20:44)
[2018-09-11] MEDS: BALSAM PERU/CASTOR OIL 60 GM TUBE TOP (09:08)
[2018-09-11] MEDS: GUAIFENESIN/CODEINE 5ML CUP PO (15:13)
[2018-09-11] MEDS: MEMANTINE 10 MG TAB PO ×2 (16:52→17:20)
[2018-09-11 19:51] LABS: IRON 63 ug/dl (35-150)
[2018-09-11 20:00] LABS: % IRON SATURATION 67 % SAT (22-52); TOTAL IRON BINDING CAPACITY 94 ug/dl (241-421)
[2018-09-11 20:21] LABS: TRIIODOTHYRONINE 0.47 ng/ml (0.97-1.69)
[2018-09-12] MEDS: GUAIFENESIN/CODEINE 5ML CUP PO (00:09)
[2018-09-12] MEDS: SUCRALFATE 1 GM TAB PO ×4 (00:09→18:20)
[2018-09-12] MEDS: DIPHENOXYLATE/ATROPINE TAB PO ×4 (02:00→21:01)
[2018-09-12] MEDS: SOD CHLORIDE 0.9% 1,000 ML IV (05:30)
[2018-09-12] MEDS: PANTOPRAZOLE (EC) 40 MG TAB PO ×2 (05:51→18:20)
[2018-09-12] MEDS: CALCIUM CARBONATE 500 MG CHEW TAB PO ×4 (08:50→18:20)
[2018-09-12] MEDS: L ACIDOPHIL/B LACTIS/B LONGUM CAPSULE PO ×2 (08:50→21:01)
[2018-09-12] MEDS: VITAMIN B COMPLEX/VIT C CAP PO (08:50)
[2018-09-12] MEDS: BALSAM PERU/CASTOR OIL 60 GM TUBE TOP (08:51)
[2018-09-12] MEDS: COLLAGENASE 5 GM (UD JAR) TOP ×2 (08:51→21:01)
[2018-09-12] MEDS: NYSTATIN 30 GM POWDER BTL TOP ×2 (08:51→21:02)
[2018-09-12] MEDS: NEOMYC/POLYMYX/BACIT 30 GM OINT TOP ×2 (08:51→21:03)
[2018-09-12] MEDS: MAGNESIUM OXIDE 400 MG TAB PO (08:51)
[2018-09-12] MEDS: METOCLOPRAMIDE 5 MG TAB PO ×2 (08:51→14:58)
[2018-09-12] MEDS: FERROUS SULFATE 60 MG/ML 5ML CUP PO ×2 (08:51→13:00)
[2018-09-12] MEDS: SERTRALINE 50 MG TAB PO (08:51)
[2018-09-12] MEDS: ACCU-CHEK XX ×2 (09:00→21:30)
[2018-09-12] MEDS: HYDROmorphONE 2 MG/ML SYG IV (14:59)
[2018-09-12] MEDS: MEMANTINE 10 MG TAB PO (16:41)
[2018-09-12] MEDS: EPOETIN ALFA (NESRD) 3,000 UNITS/ML VIAL SC (16:42)
[2018-09-13] MEDS: FERROUS SULFATE 60 MG/ML 5ML CUP PO ×4 (00:14→21:00)
[2018-09-13] MEDS: METOCLOPRAMIDE 5 MG TAB PO ×4 (00:14→20:58)
[2018-09-13] MEDS: SUCRALFATE 1 GM TAB PO ×5 (00:14→23:24)
[2018-09-13] MEDS: DIPHENOXYLATE/ATROPINE TAB PO ×4 (02:00→20:00)
[2018-09-13] MEDS: LEVALBUTEROL (NEB) 0.63 MG/3 ML AMP HHN (03:06)
[2018-09-13] MEDS: SOD CHLORIDE 0.9% 1,000 ML IV ×2 (03:27→21:30)
[2018-09-13] MEDS: LANSOPRAZOLE 30 MG CAP PO ×2 (06:22→18:18)
[2018-09-13] MEDS: NEOMYC/POLYMYX/BACIT 30 GM OINT TOP ×2 (09:00→20:59)
[2018-09-13] MEDS: MAGNESIUM OXIDE 400 MG TAB PO (09:06)
[2018-09-13] MEDS: CALCIUM CARBONATE 500 MG CHEW TAB PO ×3 (09:06→18:18)
[2018-09-13] MEDS: NYSTATIN 30 GM POWDER BTL TOP ×2 (09:07→20:59)
[2018-09-13] MEDS: SERTRALINE 50 MG TAB PO (09:07)
[2018-09-13] MEDS: VITAMIN B COMPLEX/VIT C CAP PO (09:07)
[2018-09-13] MEDS: L ACIDOPHIL/B LACTIS/B LONGUM CAPSULE PO ×2 (09:07→20:57)
[2018-09-13] MEDS: BALSAM PERU/CASTOR OIL 60 GM TUBE TOP (09:08)
[2018-09-13] MEDS: ACCU-CHEK XX ×2 (09:08→21:00)
[2018-09-13] MEDS: COLLAGENASE 5 GM (UD JAR) TOP ×2 (09:08→21:01)
[2018-09-13] MEDS: HYDROmorphONE 2 MG/ML SYG IV (10:48)
[2018-09-13] MEDS: MEMANTINE 10 MG TAB PO (17:35)
[2018-09-13] MEDS: SODIUM CHLORIDE 0.45% 500 ML BAG IV* (18:41)
[2018-09-13] MEDS: SOD CHLORIDE 0.45% IV (18:46)
[2018-09-13] MEDS: FUROSEMIDE 20 MG INJ IV (20:01)
[2018-09-13 20:30] LABS: ADD UMIC YES; UR ASCORBIC ACID NEGATIVE (NEGATIVE); UR BACTERIA MODERATE /HPF (NONE SEEN); UR BILIRUBIN (Dip) NEGATIVE (NEGATIVE); UR BLOOD (Dip) NEGATIVE (NEGATIVE); UR CLARITY TURBID (CLEAR); UR COLOR AMBER (YELLOW); UR GLUCOSE (Dip) NEGATIVE (NEGATIVE); UR KETONES (Dip) NEGATIVE (NEGATIVE); UR LEUKOCYTE ESTERASE (Dip) 2+ Leu/ul (NEGATIVE); UR MUCUS MANY /HPF (NONE SEEN); UR NITRITE (Dip) NEGATIVE (NEGATIVE); UR RBC 50 /HPF (0-5); UR SPECIFIC GRAVITY (Dip) 1.014 (1.003-1.030); UR SQUAMOUS EPITHELIAL CELL MODERATE /HPF (FEW); UR TOTAL PROTEIN (Dip) 3+ mg/dl (NEGATIVE); UR UROBILINOGEN (Dip) NEGATIVE (NEGATIVE); UR WBC 124 /HPF (0-5)
[2018-09-14] MEDS: DIPHENOXYLATE/ATROPINE TAB PO ×4 (01:06→20:00)
[2018-09-14] MEDS: SUCRALFATE 1 GM TAB PO ×4 (05:26→23:20)
[2018-09-14] MEDS: LANSOPRAZOLE 30 MG CAP PO ×2 (05:26→17:59)
[2018-09-14] MEDS: HYDROmorphONE 2 MG/ML SYG IV (05:41)
[2018-09-14 06:15] LABS: ADD MAN DIFF? NO
[2018-09-14 06:19] LABS: BASOPHILS % 0.3 % (0.0-2.0); EOSINOPHILS % 0.2 % (0.0-7.0); HEMATOCRIT 28.2 % (37.0-47.0); HEMOGLOBIN 9.6 g/dl (12.0-16.0); LYMPHOCYTES # 0.9 10^3/ul (0.8-2.9); LYMPHOCYTES % 6.6 % (15.0-51.0); MEAN CORPUSCULAR HEMOGLOBIN 32.1 pg (29.0-33.0); MEAN CORPUSCULAR VOLUME 94.3 fl (82.0-101.0); MEAN PLATELET VOLUME 10.8 fl (7.4-10.4); MONOCYTE # 0.5 10^3/ul (0.3-0.9); NEUTROPHIL # 11.3 10^3/ul (1.6-7.5); NEUTROPHILS % 87.9 % (39.0-77.0); PLATELET COUNT 161 10^3/UL (140-415); RED BLOOD COUNT 2.99 10^6/ul (4.20-5.40); RED CELL DISTRIBUTION WIDTH 19.3 % (11.5-14.5)
[2018-09-14 06:19] LABS: WHITE BLOOD COUNT 12.8 10^3/ul (4.8-10.8)
[2018-09-14 06:26] LABS: COLLECTION PERIOD 24 hrs
[2018-09-14] MEDS: SOD CHLORIDE 0.9% 250 ML IV (06:30)
[2018-09-14 07:15] LABS: ANION GAP 11 (5-13); BLOOD UREA NITROGEN 42 mg/dl (7-20); CALCIUM 8.9 mg/dl (8.4-10.2); CARBON DIOXIDE 16 mmol/L (21-31); CHLORIDE 110 mmol/L (97-110); GLUCOSE 101 mg/dl (70-220); POTASSIUM 4.5 mmol/L (3.5-5.1); SODIUM 137 mmol/L (135-144)
[2018-09-14] MEDS ORDERED: ALBUMIN HUMAN 25% 100 ML IV ×2 (07:30→08:30)
[2018-09-14 07:41] LABS: 24HR URINE TOTAL PROTEIN 110.3 mg/24hrs (42.0-225.0); VOLUME 175 mls
[2018-09-14 07:58] LABS: ALANINE AMINOTRANSFERASE 30 IU/L (13-69); ALBUMIN 2.2 g/dl (3.3-4.9); ALBUMIN/GLOBULIN RATIO 0.95; ALKALINE PHOSPHATASE 161 IU/L (42-121); ANION GAP 9 (5-13); ASPARTATE AMINO TRANSFERASE 22 IU/L (15-46); BILIRUBIN,INDIRECT 0.3 mg/dl (0-1.1); BILIRUBIN,TOTAL 0.3 mg/dl (0.2-1.3); BLOOD UREA NITROGEN 43 mg/dl (7-20); CALCIUM 8.9 mg/dl (8.4-10.2); CARBON DIOXIDE 19 mmol/L (21-31); CHLORIDE 110 mmol/L (97-110); CREATININE 2.44 mg/dl (0.44-1.00); GLUCOSE 111 mg/dl (70-220); POTASSIUM 4.3 mmol/L (3.5-5.1); SODIUM 138 mmol/L (135-144); TOTAL PROTEIN 4.5 g/dl (6.1-8.1)
[2018-09-14 08:30] LABS: AADO2 Arterial 415.2 mmHg (7.0-24.0); Allen Test ACCEPTAB; Arterial Base Excess -10.1 mmol/L (-3.0-3); Arterial Blood Gas Oxygen Sat 98.8 mmHG (95.0-100.0); Arterial COHb 0.1 % (0.0-3.0); Arterial Fraction of Oxyhgb 98.4 % (93.0-99.0); Arterial MetHb 0.3 % (0.0-1.5); Arterial pCO2 35.9 mmhg (35-45); Blood Gas IEPAP 15/5; Blood Gas PS 10; MODE MASK - BIPAP; Site Left Radial
[2018-09-14] MEDS: VITAMIN B COMPLEX/VIT C CAP PO (09:00)
[2018-09-14] MEDS: ACCU-CHEK XX ×2 (09:00→21:11)
[2018-09-14] MEDS: MAGNESIUM OXIDE 400 MG TAB PO (10:00)
[2018-09-14] MEDS: FERROUS SULFATE 60 MG/ML 5ML CUP PO ×3 (10:00→21:00)
[2018-09-14] MEDS: COLLAGENASE 5 GM (UD JAR) TOP ×2 (10:01→21:11)
[2018-09-14] MEDS: SERTRALINE 50 MG TAB PO (10:01)
[2018-09-14] MEDS: CALCIUM CARBONATE 500 MG CHEW TAB PO ×3 (10:01→17:59)
[2018-09-14] MEDS: BALSAM PERU/CASTOR OIL 60 GM TUBE TOP (10:02)
[2018-09-14] MEDS: NYSTATIN 30 GM POWDER BTL TOP ×2 (10:02→21:11)
[2018-09-14] MEDS: ALBUMIN HUMAN 25% 100 ML IV ×3 (10:03→22:22)
[2018-09-14] MEDS: NEOMYC/POLYMYX/BACIT 30 GM OINT TOP ×2 (10:08→21:11)
[2018-09-14] MEDS: SODIUM BICARBONATE (IV ADD) 100 MEQ in DEXTROSE 5%-0.45% NACL 1,000 ML IV (10:38)
[2018-09-14] MEDS: L ACIDOPHIL/B LACTIS/B LONGUM CAPSULE PO ×2 (12:00→21:00)
[2018-09-14] MEDS: METOCLOPRAMIDE 5 MG TAB PO ×3 (12:00→21:00)
[2018-09-14 15:14] LABS: AADO2 Arterial 347.8 mmHg (7.0-24.0); Allen Test ACCEPTAB; Arterial Base Excess -6.7 mmol/L (-3.0-3); Arterial Blood Gas Oxygen Sat 99.3 mmHG (95.0-100.0); Arterial COHb 0.3 % (0.0-3.0); Arterial Fraction of Oxyhgb 98.7 % (93.0-99.0); Arterial HCO3 19.1 mmol/L (22.0-26.0); Arterial MetHb 0.3 % (0.0-1.5); Arterial pCO2 39.5 mmhg (35-45); Blood Gas IEPAP 15/5; Blood Gas PS 10; MODE MASK - BIPAP; Site Right Radial
[2018-09-14] MEDS: MEMANTINE 10 MG TAB PO (17:00)
[2018-09-14 17:54] LABS: AADO2 Arterial 188.9 mmHg (7.0-24.0); Allen Test ACCEPTAB; Arterial Base Excess -9.3 mmol/L (-3.0-3); Arterial COHb 0.3 % (0.0-3.0); Arterial Fraction of Oxyhgb 75.4 % (93.0-99.0); Arterial HCO3 17.1 mmol/L (22.0-26.0); Arterial MetHb 0.5 % (0.0-1.5); Arterial pCO2 39.4 mmhg (35-45); MODE NASAL CANNULA; Site Right Radial
[2018-09-14] MEDS ORDERED: NORepinephrine 8MG/250 ML (PMX 250 ML IV ×2 (18:30)
[2018-09-14 21:06] LABS: AADO2 Arterial 523.5 mmHg (7.0-24.0); Allen Test ACCEPTAB; Arterial Base Excess -6.6 mmol/L (-3.0-3); Arterial Blood Gas Oxygen Sat 98.6 mmHG (95.0-100.0); Arterial COHb 0.3 % (0.0-3.0); Arterial HCO3 18.8 mmol/L (22.0-26.0); Arterial MetHb 0.3 % (0.0-1.5); Arterial pCO2 37.1 mmhg (35-45); Blood Gas IEPAP 15/5; MODE MASK - BIPAP; Site Right Radial
[2018-09-14] MEDS: PIPER-TAZO 2.25 GM (PMX) 50 ML IVPB (21:12)
[2018-09-14] MEDS: FUROSEMIDE 20 MG INJ IV (23:15)
[2018-09-15] MEDS: PIPER-TAZO 2.25 GM (PMX) 50 ML IVPB ×5 (00:32→23:29)
[2018-09-15] MEDS: DIPHENOXYLATE/ATROPINE TAB PO ×4 (02:00→19:40)
[2018-09-15] MEDS: SODIUM BICARBONATE (IV ADD) 100 MEQ in DEXTROSE 5%-0.45% NACL 1,000 ML IV ×3 (02:11→19:02)
[2018-09-15] MEDS: HYDROmorphONE 2 MG/ML SYG IV (04:02)
[2018-09-15 04:52] LABS: ADD MAN DIFF? NO
[2018-09-15 05:01] LABS: BASOPHILS % 0.2 % (0.0-2.0); HEMATOCRIT 23.1 % (37.0-47.0); HEMOGLOBIN 7.9 g/dl (12.0-16.0); LYMPHOCYTES # 0.7 10^3/ul (0.8-2.9); LYMPHOCYTES % 5.7 % (15.0-51.0); MEAN CORPUSCULAR HGB CONC 34.2 g/dl (32.0-37.0); MEAN CORPUSCULAR VOLUME 93.5 fl (82.0-101.0); MEAN PLATELET VOLUME 11.8 fl (7.4-10.4); MONOCYTE # 0.5 10^3/ul (0.3-0.9); MONOCYTES % 3.9 % (0.0-11.0); NEUTROPHIL # 11.7 10^3/ul (1.6-7.5); NEUTROPHILS % 89.3 % (39.0-77.0); PLATELET COUNT 151 10^3/UL (140-415); RED BLOOD COUNT 2.47 10^6/ul (4.20-5.40); RED CELL DISTRIBUTION WIDTH 19.2 % (11.5-14.5)
[2018-09-15 05:01] LABS: WHITE BLOOD COUNT 13.1 10^3/ul (4.8-10.8)
[2018-09-15] MEDS: SUCRALFATE 1 GM TAB PO ×4 (05:14→23:11)
[2018-09-15] MEDS: LANSOPRAZOLE 30 MG CAP PO ×2 (05:15→17:39)
[2018-09-15 05:29] LABS: ANION GAP 10 (5-13); BLOOD UREA NITROGEN 44 mg/dl (7-20); CALCIUM 8.9 mg/dl (8.4-10.2); CARBON DIOXIDE 20 mmol/L (21-31); CHLORIDE 108 mmol/L (97-110); CREATININE 2.44 mg/dl (0.44-1.00); GLUCOSE 153 mg/dl (70-220); MAGNESIUM 2.5 mg/dl (1.7-2.5); PHOSPHORUS 2.5 mg/dl (2.5-4.9); POTASSIUM 3.8 mmol/L (3.5-5.1); SODIUM 138 mmol/L (135-144)
[2018-09-15 05:35] LABS: B-TYPE NATRIURETIC PEPTIDE 7820 PG/ML (0-450)
[2018-09-15] MEDS: CALCIUM CARBONATE 500 MG CHEW TAB PO ×3 (08:09→17:39)
[2018-09-15] MEDS: METOCLOPRAMIDE 5 MG TAB PO ×3 (08:10→20:58)
[2018-09-15] MEDS: L ACIDOPHIL/B LACTIS/B LONGUM CAPSULE PO ×2 (08:10→20:57)
[2018-09-15] MEDS: VITAMIN B COMPLEX/VIT C CAP PO (08:10)
[2018-09-15] MEDS: MAGNESIUM OXIDE 400 MG TAB PO (08:10)
[2018-09-15] MEDS: FERROUS SULFATE 60 MG/ML 5ML CUP PO ×3 (08:10→20:57)
[2018-09-15] MEDS: SERTRALINE 50 MG TAB PO (08:10)
[2018-09-15] MEDS ORDERED: VANCOMYCIN IV PER PHARMACY XX (08:30)
[2018-09-15] MEDS: NEOMYC/POLYMYX/BACIT 30 GM OINT TOP ×2 (08:32→21:07)
[2018-09-15] MEDS: COLLAGENASE 5 GM (UD JAR) TOP ×2 (08:32→21:07)
[2018-09-15] MEDS: NYSTATIN 30 GM POWDER BTL TOP ×2 (08:32→21:07)
[2018-09-15] MEDS: BALSAM PERU/CASTOR OIL 60 GM TUBE TOP (08:42)
[2018-09-15] MEDS: ACCU-CHEK XX ×2 (08:43→21:07)
[2018-09-15 11:05] LABS: IMMEDIATE SPIN CROSSMATCH 1 3
[2018-09-15] MEDS: VANCOMYCIN 1 GM 250 ML IVPB (12:25)
[2018-09-15] MEDS: MEMANTINE 10 MG TAB PO (17:00)
[2018-09-15] MEDS: LIDOCAINE 1% (MPF) 5 ML VIAL SC (17:00)
[2018-09-15] MEDS: EPOETIN ALFA (NESRD) 3,000 UNITS/ML VIAL SC (17:26)
[2018-09-15 20:21] LABS: ADD MAN DIFF? NO
[2018-09-15 20:23] LABS: BASOPHIL # 0.1 10^3/ul (0.0-0.1); BASOPHILS % 0.2 % (0.0-2.0); HEMATOCRIT 28.6 % (37.0-47.0); HEMOGLOBIN 9.8 g/dl (12.0-16.0); LYMPHOCYTES # 0.6 10^3/ul (0.8-2.9); LYMPHOCYTES % 2.6 % (15.0-51.0); MEAN CORPUSCULAR HEMOGLOBIN 31.9 pg (29.0-33.0); MEAN CORPUSCULAR HGB CONC 34.3 g/dl (32.0-37.0); MEAN CORPUSCULAR VOLUME 93.2 fl (82.0-101.0); MEAN PLATELET VOLUME 11.2 fl (7.4-10.4); MONOCYTE # 0.5 10^3/ul (0.3-0.9); MONOCYTES % 2.1 % (0.0-11.0); NEUTROPHIL # 19.7 10^3/ul (1.6-7.5); NEUTROPHILS % 94.2 % (39.0-77.0); PLATELET COUNT 135 10^3/UL (140-415); RED BLOOD COUNT 3.07 10^6/ul (4.20-5.40); RED CELL DISTRIBUTION WIDTH 19.1 % (11.5-14.5)
[2018-09-15] MEDS: ACETAMINOPHEN 650 MG SUPP PR (21:52)
[2018-09-15] MEDS ORDERED: DEXTROSE 50% 50 ML SYRINGE IV ×2 (22:00)
[2018-09-15] MEDS ORDERED: GLUCAGON 1 MG INJ IM (22:00)
[2018-09-15] MEDS ORDERED: GLUCOSE GEL 15 GRAM TUBE BUCCAL (22:00)
[2018-09-15] MEDS ORDERED: GLUCOSE GEL 15 GRAM TUBE PO ×2 (22:00)
[2018-09-16] MEDS ORDERED: ALBUMIN HUMAN 25% 100 ML IV
[2018-09-16] MEDS: ALBUMIN HUMAN 25% 100 ML IV (00:35)
[2018-09-16] MEDS: INSULIN ASPART [NOVOLOG] 3 ML PEN SC ×6 (01:34→20:27)
[2018-09-16] MEDS: DIPHENOXYLATE/ATROPINE TAB PO ×4 (01:35→20:00)
[2018-09-16 01:36] LABS: ERYTHROPOIETIN 6.8 mIU/mL (2.6-18.5)
[2018-09-16] MEDS: FUROSEMIDE 20 MG INJ IV ×2 (01:38)
[2018-09-16] MEDS: LANSOPRAZOLE 30 MG CAP PO ×2 (04:36→17:38)
[2018-09-16] MEDS: SUCRALFATE 1 GM TAB PO ×4 (04:36→23:50)
[2018-09-16 05:18] LABS: ADD MAN DIFF? NO
[2018-09-16 05:21] LABS: WHITE BLOOD COUNT 17.9 10^3/ul (4.8-10.8)
[2018-09-16 05:21] LABS: BASOPHILS % 0.2 % (0.0-2.0); HEMATOCRIT 26.6 % (37.0-47.0); HEMOGLOBIN 9.2 g/dl (12.0-16.0); LYMPHOCYTES # 0.8 10^3/ul (0.8-2.9); LYMPHOCYTES % 4.3 % (15.0-51.0); MEAN CORPUSCULAR HEMOGLOBIN 31.6 pg (29.0-33.0); MEAN CORPUSCULAR HGB CONC 34.6 g/dl (32.0-37.0); MEAN CORPUSCULAR VOLUME 91.4 fl (82.0-101.0); MEAN PLATELET VOLUME 11.7 fl (7.4-10.4); MONOCYTE # 0.5 10^3/ul (0.3-0.9); MONOCYTES % 2.8 % (0.0-11.0); NEUTROPHIL # 16.4 10^3/ul (1.6-7.5); NEUTROPHILS % 91.7 % (39.0-77.0); PLATELET COUNT 154 10^3/UL (140-415); RED BLOOD COUNT 2.91 10^6/ul (4.20-5.40); RED CELL DISTRIBUTION WIDTH 19.1 % (11.5-14.5)
[2018-09-16] MEDS: PIPER-TAZO 2.25 GM (PMX) 50 ML IVPB ×4 (05:35→23:57)
[2018-09-16 05:43] LABS: ALANINE AMINOTRANSFERASE 29 IU/L (13-69); ALBUMIN 2.8 g/dl (3.3-4.9); ALBUMIN/GLOBULIN RATIO 1.47; ALKALINE PHOSPHATASE 101 IU/L (42-121); ANION GAP 12 (5-13); ASPARTATE AMINO TRANSFERASE 17 IU/L (15-46); BILIRUBIN,INDIRECT 0.7 mg/dl (0-1.1); BILIRUBIN,TOTAL 0.7 mg/dl (0.2-1.3); BLOOD UREA NITROGEN 47 mg/dl (7-20); CALCIUM 9.1 mg/dl (8.4-10.2); CARBON DIOXIDE 21 mmol/L (21-31); CHLORIDE 109 mmol/L (97-110); CREATININE 2.67 mg/dl (0.44-1.00); GLUCOSE 164 mg/dl (70-220); INR 1.86; POTASSIUM 3.9 mmol/L (3.5-5.1); PROTIME 21.5 Sec (11.9-14.9); PT RATIO 1.7; SODIUM 142 mmol/L (135-144); TOTAL PROTEIN 4.7 g/dl (6.1-8.1)
[2018-09-16 05:44] LABS: PARTIAL THROMBOPLASTIN TIME 41.7 Sec (23.0-35.0)
[2018-09-16 05:47] LABS: LACTIC ACID 2.2 mmol/L (0.5-2.0)
[2018-09-16] MEDS: L ACIDOPHIL/B LACTIS/B LONGUM CAPSULE PO ×2 (07:52→20:24)
[2018-09-16] MEDS: CALCIUM CARBONATE 500 MG CHEW TAB PO ×3 (07:52→17:38)
[2018-09-16] MEDS: VITAMIN B COMPLEX/VIT C CAP PO (07:52)
[2018-09-16] MEDS: MAGNESIUM OXIDE 400 MG TAB PO (07:53)
[2018-09-16] MEDS: METOCLOPRAMIDE 5 MG TAB PO ×3 (07:57→20:25)
[2018-09-16] MEDS: SERTRALINE 50 MG TAB PO (07:57)
[2018-09-16] MEDS: ACCU-CHEK XX ×2 (09:00→20:29)
[2018-09-16] MEDS: COLLAGENASE 5 GM (UD JAR) TOP ×2 (09:22→20:29)
[2018-09-16] MEDS: BALSAM PERU/CASTOR OIL 60 GM TUBE TOP (09:22)
[2018-09-16] MEDS: NYSTATIN 30 GM POWDER BTL TOP ×2 (09:22→20:29)
[2018-09-16] MEDS ORDERED: TPN 1,000 ML IV (16:00)
[2018-09-16] MEDS: MEMANTINE 10 MG TAB PO (17:00)
[2018-09-16] MEDS: POTASSIUM CHLORIDE 100 ML IVPB ×2 (17:46→20:28)
[2018-09-16] MEDS: BUMETANIDE 12 MG in DEXTROSE 5% 72 ML IV (17:55)
[2018-09-16] MEDS: SODIUM BICARBONATE (IV ADD) 100 MEQ in DEXTROSE 5% 1,000 ML IV (17:55)
[2018-09-16] MEDS: FERROUS SULFATE 60 MG/ML 5ML CUP PO (20:24)
[2018-09-16] MEDS: NEOMYC/POLYMYX/BACIT 30 GM OINT TOP (20:30)
[2018-09-17] MEDS: DIPHENOXYLATE/ATROPINE TAB PO ×4 (00:03→20:00)
[2018-09-17] MEDS: INSULIN ASPART [NOVOLOG] 3 ML PEN SC ×6 (00:03→21:00)
[2018-09-17] MEDS: ACETAMINOPHEN 325 MG SUPP PR (00:21)
[2018-09-17] MEDS ORDERED: DIPHENHYDRAMINE 50 MG INJ (00:25)
[2018-09-17] MEDS: DIPHENHYDRAMINE 50 MG INJ IV (00:29)
[2018-09-17] MEDS: SODIUM BICARBONATE (IV ADD) 100 MEQ in DEXTROSE 5% 1,000 ML IV ×2 (01:15→13:41)
[2018-09-17] MEDS: PANTOPRAZOLE 40 MG INJ IV (05:29)
[2018-09-17] MEDS: VANCOMYCIN 1 GM 250 ML IVPB (05:29)
[2018-09-17] MEDS: PIPER-TAZO 2.25 GM (PMX) 50 ML IVPB ×3 (05:29→19:27)
[2018-09-17] MEDS: SUCRALFATE 1 GM TAB PO ×3 (05:30→18:04)
[2018-09-17 05:36] LABS: ADD MAN DIFF? NO
[2018-09-17 06:01] LABS: LACTIC ACID 1.1 mmol/L (0.5-2.0)
[2018-09-17 06:03] LABS: MAGNESIUM 2.4 mg/dl (1.7-2.5)
[2018-09-17 06:03] LABS: PHOSPHORUS 2.2 mg/dl (2.5-4.9)
[2018-09-17 06:05] LABS: ALANINE AMINOTRANSFERASE 34 IU/L (13-69); ALBUMIN 2.4 g/dl (3.3-4.9); ALBUMIN/GLOBULIN RATIO 1.09; ALKALINE PHOSPHATASE 122 IU/L (42-121); ANION GAP 9 (5-13); ASPARTATE AMINO TRANSFERASE 25 IU/L (15-46); BILIRUBIN,INDIRECT 0.9 mg/dl (0-1.1); BILIRUBIN,TOTAL 0.9 mg/dl (0.2-1.3); BLOOD UREA NITROGEN 49 mg/dl (7-20); CALCIUM 8.9 mg/dl (8.4-10.2); CARBON DIOXIDE 23 mmol/L (21-31); CHLORIDE 109 mmol/L (97-110); CREATININE 2.62 mg/dl (0.44-1.00); GLUCOSE 99 mg/dl (70-220); POTASSIUM 3.8 mmol/L (3.5-5.1); SODIUM 141 mmol/L (135-144); TOTAL PROTEIN 4.6 g/dl (6.1-8.1)
[2018-09-17] MEDS: VITAMIN B COMPLEX/VIT C CAP PO (07:49)
[2018-09-17] MEDS: CALCIUM CARBONATE 500 MG CHEW TAB PO ×3 (07:49→19:00)
[2018-09-17] MEDS: METOCLOPRAMIDE 5 MG TAB PO ×3 (07:50→21:00)
[2018-09-17] MEDS: L ACIDOPHIL/B LACTIS/B LONGUM CAPSULE PO ×2 (07:50→21:00)
[2018-09-17] MEDS: SERTRALINE 50 MG TAB PO (07:50)
[2018-09-17] MEDS: MAGNESIUM OXIDE 400 MG TAB PO (07:50)
[2018-09-17] MEDS: FERROUS SULFATE 60 MG/ML 5ML CUP PO ×3 (07:50→21:00)
[2018-09-17 07:55] LABS: BASOPHILS % 0.2 % (0.0-2.0); EOSINOPHILS % 0.2 % (0.0-7.0); HEMATOCRIT 35.3 % (37.0-47.0); HEMOGLOBIN 12.4 g/dl (12.0-16.0); LYMPHOCYTES # 0.8 10^3/ul (0.8-2.9); LYMPHOCYTES % 5.6 % (15.0-51.0); MEAN CORPUSCULAR HEMOGLOBIN 31.3 pg (29.0-33.0); MEAN CORPUSCULAR HGB CONC 35.1 g/dl (32.0-37.0); MEAN CORPUSCULAR VOLUME 89.1 fl (82.0-101.0); MEAN PLATELET VOLUME 11.7 fl (7.4-10.4); MONOCYTE # 0.3 10^3/ul (0.3-0.9); MONOCYTES % 2.4 % (0.0-11.0); NEUTROPHIL # 12.7 10^3/ul (1.6-7.5); NEUTROPHILS % 90.7 % (39.0-77.0); PLATELET COUNT 131 10^3/UL (140-415); RED BLOOD COUNT 3.96 10^6/ul (4.20-5.40); RED CELL DISTRIBUTION WIDTH 17.1 % (11.5-14.5)
[2018-09-17] MEDS: BALSAM PERU/CASTOR OIL 60 GM TUBE TOP (09:00)
[2018-09-17] MEDS: NEOMYC/POLYMYX/BACIT 30 GM OINT TOP ×2 (09:00→21:20)
[2018-09-17] MEDS: COLLAGENASE 5 GM (UD JAR) TOP ×3 (09:00→22:38)
[2018-09-17] MEDS: NYSTATIN 30 GM POWDER BTL TOP ×2 (09:00→21:16)
[2018-09-17] MEDS: ACCU-CHEK XX ×2 (09:00→21:15)
[2018-09-17] MEDS ORDERED: VANCOMYCIN HCL 1.5 GM in SOD CHLORIDE 0.9% 250 ML IVPB (09:00)
[2018-09-17] MEDS ORDERED: FAT EMULSION 20% 250 ML IV (09:00)
[2018-09-17] MEDS: BUMETANIDE 25 MG in DEXTROSE 5% 150 ML IV (11:31)
[2018-09-17] MEDS: POTASSIUM PHOSPHATE 20 MEQ in SOD CHLORIDE 0.9% 250 ML IVPB (11:31)
[2018-09-17] MEDS: DEXTROSE 5% 1,000 ML IV (13:42)
[2018-09-17] MEDS: EPOETIN ALFA (NESRD) 3,000 UNITS/ML VIAL SC (17:00)
[2018-09-17] MEDS: ACETAMINOPHEN 325 MG TAB PO (18:04)
[2018-09-17] MEDS: MEMANTINE 10 MG TAB PO (19:27)
[2018-09-17] MEDS: TPN 1,000 ML IV (22:37)
[2018-09-18] MEDS: INSULIN ASPART [NOVOLOG] 3 ML PEN SC ×6 (00:39→21:03)
[2018-09-18] MEDS: PIPER-TAZO 2.25 GM (PMX) 50 ML IVPB ×4 (00:39→18:04)
[2018-09-18] MEDS: DIPHENOXYLATE/ATROPINE TAB PO ×4 (02:00→20:00)
[2018-09-18] MEDS: morphine 2 MG INJ IV (05:33)
[2018-09-18] MEDS: SUCRALFATE 1 GM TAB PO ×4 (05:47→18:00)
[2018-09-18 05:57] LABS: ADD MAN DIFF? NO
[2018-09-18 06:01] LABS: BASOPHILS % 0.2 % (0.0-2.0); EOSINOPHILS % 0.2 % (0.0-7.0); HEMATOCRIT 33.8 % (37.0-47.0); HEMOGLOBIN 11.4 g/dl (12.0-16.0); LYMPHOCYTES # 0.7 10^3/ul (0.8-2.9); LYMPHOCYTES % 5.5 % (15.0-51.0); MEAN CORPUSCULAR HEMOGLOBIN 30.7 pg (29.0-33.0); MEAN CORPUSCULAR HGB CONC 33.7 g/dl (32.0-37.0); MEAN CORPUSCULAR VOLUME 91.1 fl (82.0-101.0); MEAN PLATELET VOLUME 12.3 fl (7.4-10.4); MONOCYTE # 0.3 10^3/ul (0.3-0.9); NEUTROPHIL # 11.8 10^3/ul (1.6-7.5); NEUTROPHILS % 91.4 % (39.0-77.0); PLATELET COUNT 100 10^3/UL (140-415); RED BLOOD COUNT 3.71 10^6/ul (4.20-5.40); RED CELL DISTRIBUTION WIDTH 18.2 % (11.5-14.5)
[2018-09-18 06:01] LABS: WHITE BLOOD COUNT 12.8 10^3/ul (4.8-10.8)
[2018-09-18 06:20] LABS: TRIGLYCERIDES 108 mg/dl (0-149)
[2018-09-18 06:21] LABS: MAGNESIUM 2.2 mg/dl (1.7-2.5)
[2018-09-18 06:21] LABS: PHOSPHORUS 2.8 mg/dl (2.5-4.9)
[2018-09-18 06:23] LABS: ANION GAP 10 (5-13); BLOOD UREA NITROGEN 48 mg/dl (7-20); CALCIUM 8.2 mg/dl (8.4-10.2); CARBON DIOXIDE 19 mmol/L (21-31); CHLORIDE 105 mmol/L (97-110); CREATININE 2.84 mg/dl (0.44-1.00); POTASSIUM 3.3 mmol/L (3.5-5.1); SODIUM 134 mmol/L (135-144)
[2018-09-18 06:36] LABS: GLUCOSE 506 mg/dl (70-220)
[2018-09-18] MEDS: FAMOTIDINE 20 MG INJ IV (08:56)
[2018-09-18] MEDS: L ACIDOPHIL/B LACTIS/B LONGUM CAPSULE PO ×2 (08:57→21:00)
[2018-09-18] MEDS: POTASSIUM CHLORIDE 50 ML IVPB ×3 (08:57→12:50)
[2018-09-18] MEDS: VITAMIN B COMPLEX/VIT C CAP PO (08:57)
[2018-09-18] MEDS: FERROUS SULFATE 60 MG/ML 5ML CUP PO ×3 (08:57→21:00)
[2018-09-18] MEDS: SERTRALINE 50 MG TAB PO (08:59)
[2018-09-18] MEDS: MAGNESIUM OXIDE 400 MG TAB PO (08:59)
[2018-09-18] MEDS: CALCIUM CARBONATE 500 MG CHEW TAB PO ×3 (08:59→18:04)
[2018-09-18] MEDS: METOCLOPRAMIDE 5 MG TAB PO ×3 (08:59→21:00)
[2018-09-18] MEDS: NEOMYC/POLYMYX/BACIT 30 GM OINT TOP ×2 (09:01→21:06)
[2018-09-18] MEDS: COLLAGENASE 5 GM (UD JAR) TOP ×2 (09:01→21:05)
[2018-09-18] MEDS: ACCU-CHEK XX ×2 (09:01→21:06)
[2018-09-18] MEDS: NYSTATIN 30 GM POWDER BTL TOP ×2 (09:01→21:06)
[2018-09-18] MEDS: CELECOXIB 100 MG CAP PO ×2 (09:30→21:00)
[2018-09-18] MEDS ORDERED: CELECOXIB 100 MG CAP PO (09:30)
[2018-09-18] MEDS ORDERED: POTASSIUM CHLORIDE 50 ML IVPB (09:30)
[2018-09-18] MEDS: TPN 1,000 ML IV ×2 (12:00→18:03)
[2018-09-18] MEDS ORDERED: POTASSIUM CHLORIDE 100 ML IVPB (13:00)
[2018-09-18] MEDS: GABAPENTIN 100 MG CAP PO ×2 (13:00→21:00)
[2018-09-18] MEDS: MEMANTINE 10 MG TAB PO (17:00)
[2018-09-18] MEDS: FAT EMULSION 20% 250 ML IV (18:03)
[2018-09-18 19:47] LABS: POTASSIUM 3.9 mmol/L (3.5-5.1)
[2018-09-19] MEDS: PIPER-TAZO 2.25 GM (PMX) 50 ML IVPB ×4 (00:21→18:37)
[2018-09-19] MEDS: INSULIN ASPART [NOVOLOG] 3 ML PEN SC ×6 (01:00→20:36)
[2018-09-19] MEDS: DIPHENOXYLATE/ATROPINE TAB PO ×4 (02:00→20:15)
[2018-09-19] MEDS: SUCRALFATE 1 GM TAB PO ×4 (05:27→18:35)
[2018-09-19 05:47] LABS: ADD MAN DIFF? NO
[2018-09-19 05:56] LABS: ABNORMAL IP MESSAGE 1; BASOPHILS % 0.3 % (0.0-2.0); EOSINOPHILS # 0.1 10^3/ul (0.0-0.5); EOSINOPHILS % 0.7 % (0.0-7.0); HEMATOCRIT 32.3 % (37.0-47.0); HEMOGLOBIN 11.6 g/dl (12.0-16.0); LYMPHOCYTES # 0.6 10^3/ul (0.8-2.9); LYMPHOCYTES % 5.4 % (15.0-51.0); MEAN CORPUSCULAR HEMOGLOBIN 32.9 pg (29.0-33.0); MEAN CORPUSCULAR HGB CONC 35.9 g/dl (32.0-37.0); MEAN CORPUSCULAR VOLUME 91.5 fl (82.0-101.0); MONOCYTE # 0.3 10^3/ul (0.3-0.9); MONOCYTES % 2.6 % (0.0-11.0); NEUTROPHIL # 10.5 10^3/ul (1.6-7.5); NEUTROPHILS % 89.9 % (39.0-77.0); PLATELET COUNT 73 10^3/UL (140-415); RED BLOOD COUNT 3.53 10^6/ul (4.20-5.40); RED CELL DISTRIBUTION WIDTH 18.1 % (11.5-14.5)
[2018-09-19 05:56] LABS: WHITE BLOOD COUNT 11.7 10^3/ul (4.8-10.8)
[2018-09-19 06:01] LABS: POSITIVE DIFF @See below
[2018-09-19 06:21] LABS: PHOSPHORUS 2.2 mg/dl (2.5-4.9)
[2018-09-19 06:21] LABS: MAGNESIUM 1.9 mg/dl (1.7-2.5)
[2018-09-19 06:35] LABS: ANION GAP 10 (5-13); BLOOD UREA NITROGEN 54 mg/dl (7-20); CARBON DIOXIDE 18 mmol/L (21-31); CHLORIDE 100 mmol/L (97-110); POTASSIUM 3.2 mmol/L (3.5-5.1); SODIUM 128 mmol/L (135-144)
[2018-09-19 06:40] LABS: GLUCOSE 453 mg/dl (70-220)
[2018-09-19] MEDS: FAMOTIDINE 20 MG INJ IV (08:17)
[2018-09-19] MEDS: DULOXETINE 20 MG CAP DR PO (08:19)
[2018-09-19] MEDS: METOCLOPRAMIDE 5 MG TAB PO ×3 (08:19→20:15)
[2018-09-19] MEDS: L ACIDOPHIL/B LACTIS/B LONGUM CAPSULE PO ×2 (08:19→20:15)
[2018-09-19] MEDS: FERROUS SULFATE 60 MG/ML 5ML CUP PO ×3 (08:19→20:15)
[2018-09-19] MEDS: MAGNESIUM OXIDE 400 MG TAB PO (08:19)
[2018-09-19] MEDS: CALCIUM CARBONATE 500 MG CHEW TAB PO ×3 (08:19→19:05)
[2018-09-19] MEDS: CELECOXIB 100 MG CAP PO ×2 (08:19→20:15)
[2018-09-19] MEDS: NYSTATIN 30 GM POWDER BTL TOP ×2 (08:20→20:20)
[2018-09-19] MEDS: NEOMYC/POLYMYX/BACIT 30 GM OINT TOP ×2 (08:20→20:21)
[2018-09-19] MEDS: ACCU-CHEK XX ×2 (08:21→21:00)
[2018-09-19] MEDS: COLLAGENASE 5 GM (UD JAR) TOP ×2 (08:21→20:18)
[2018-09-19] MEDS: GABAPENTIN (50 MG/ML PO SYG) PO ×3 (09:00→21:00)
[2018-09-19] MEDS: ACETAMINOPHEN 1000MG/100ML IV 100 ML IVPB (12:53)
[2018-09-19] MEDS: POTASSIUM CHLORIDE 50 ML IVPB ×3 (14:45→18:35)
[2018-09-19] MEDS: VITAMIN B COMPLEX/VIT C CAP PO (14:45)
[2018-09-19] MEDS: TPN 1,000 ML IV (14:45)
[2018-09-19] MEDS: SODIUM PHOSPHATE 15 MMOL in SOD CHLORIDE 0.9% 250 ML IV (16:35)
[2018-09-19] MEDS: MEMANTINE 10 MG TAB PO (18:37)
[2018-09-19] MEDS: morphine 2 MG INJ IV (18:39)
[2018-09-20] MEDS: PIPER-TAZO 2.25 GM (PMX) 50 ML IVPB ×4 (01:54→17:59)
[2018-09-20] MEDS: SUCRALFATE 1 GM TAB PO ×5 (02:06→17:51)
[2018-09-20] MEDS: DIPHENOXYLATE/ATROPINE TAB PO ×4 (02:06→21:54)
[2018-09-20] MEDS: INSULIN ASPART [NOVOLOG] 3 ML PEN SC ×6 (02:22→22:30)
[2018-09-20 06:00] LABS: ADD MAN DIFF? NO
[2018-09-20 06:09] LABS: ABNORMAL IP MESSAGE 1; BASOPHILS % 0.4 % (0.0-2.0); EOSINOPHILS # 0.3 10^3/ul (0.0-0.5); EOSINOPHILS % 2.3 % (0.0-7.0); HEMATOCRIT 29.1 % (37.0-47.0); HEMOGLOBIN 9.9 g/dl (12.0-16.0); LYMPHOCYTES # 0.9 10^3/ul (0.8-2.9); LYMPHOCYTES % 8.4 % (15.0-51.0); MEAN CORPUSCULAR HEMOGLOBIN 30.7 pg (29.0-33.0); MEAN CORPUSCULAR VOLUME 90.1 fl (82.0-101.0); MEAN PLATELET VOLUME 13.2 fl (7.4-10.4); MONOCYTE # 0.5 10^3/ul (0.3-0.9); MONOCYTES % 4.3 % (0.0-11.0); NEUTROPHIL # 9.2 10^3/ul (1.6-7.5); NEUTROPHILS % 83.7 % (39.0-77.0); PLATELET COUNT 53 10^3/UL (140-415); RED BLOOD COUNT 3.23 10^6/ul (4.20-5.40); RED CELL DISTRIBUTION WIDTH 17.8 % (11.5-14.5)
[2018-09-20 06:13] LABS: POSITIVE DIFF @See below
[2018-09-20 07:01] LABS: ANION GAP 9 (5-13); BLOOD UREA NITROGEN 65 mg/dl (7-20); CALCIUM 8.5 mg/dl (8.4-10.2); CARBON DIOXIDE 21 mmol/L (21-31); CHLORIDE 107 mmol/L (97-110); GLUCOSE 125 mg/dl (70-220); MAGNESIUM 2.2 mg/dl (1.7-2.5); PHOSPHORUS 2.5 mg/dl (2.5-4.9); POTASSIUM 3.5 mmol/L (3.5-5.1); SODIUM 137 mmol/L (135-144)
[2018-09-20] MEDS: DULOXETINE 20 MG CAP DR PO (08:47)
[2018-09-20] MEDS: MAGNESIUM OXIDE 400 MG TAB PO (08:47)
[2018-09-20] MEDS: CALCIUM CARBONATE 500 MG CHEW TAB PO ×3 (08:47→18:01)
[2018-09-20] MEDS: METOCLOPRAMIDE 5 MG TAB PO ×3 (08:47→21:55)
[2018-09-20] MEDS: FAMOTIDINE 20 MG INJ IV (08:47)
[2018-09-20] MEDS: VITAMIN B COMPLEX/VIT C CAP PO (08:47)
[2018-09-20] MEDS: FERROUS SULFATE 60 MG/ML 5ML CUP PO ×3 (08:47→21:55)
[2018-09-20] MEDS: COLLAGENASE 5 GM (UD JAR) TOP ×2 (08:47→22:07)
[2018-09-20] MEDS: CELECOXIB 100 MG CAP PO ×2 (09:02→21:54)
[2018-09-20] MEDS: L ACIDOPHIL/B LACTIS/B LONGUM CAPSULE PO ×2 (09:02→21:54)
[2018-09-20] MEDS: NYSTATIN 30 GM POWDER BTL TOP (09:03)
[2018-09-20] MEDS: NEOMYC/POLYMYX/BACIT 30 GM OINT TOP ×2 (09:03→22:08)
[2018-09-20] MEDS: ACCU-CHEK XX ×2 (09:03→21:00)
[2018-09-20] MEDS: GABAPENTIN (50 MG/ML PO SYG) PO ×2 (09:49→13:31)
[2018-09-20] MEDS: TPN 1,000 ML IV (12:00)
[2018-09-20 12:46] LABS: PROCALCITONIN 1.47 ng/mL (<0.10)
[2018-09-20] MEDS: POTASSIUM PHOSPHATE 15 MM in SOD CHLORIDE 0.9% 250 ML IV (15:59)
[2018-09-20] MEDS: MEMANTINE 10 MG TAB PO (17:51)
[2018-09-21] MEDS: DIPHENOXYLATE/ATROPINE TAB PO ×4 (01:24→20:38)
[2018-09-21] MEDS: SUCRALFATE 1 GM TAB PO ×5 (01:24→23:50)
[2018-09-21] MEDS: PIPER-TAZO 2.25 GM (PMX) 50 ML IVPB ×3 (01:24→13:32)
[2018-09-21] MEDS: INSULIN ASPART [NOVOLOG] 3 ML PEN SC ×6 (01:51→21:18)
[2018-09-21 06:34] LABS: ANION GAP 8 (5-13); BLOOD UREA NITROGEN 69 mg/dl (7-20); CALCIUM 8.2 mg/dl (8.4-10.2); CARBON DIOXIDE 20 mmol/L (21-31); CHLORIDE 107 mmol/L (97-110); CREATININE 2.87 mg/dl (0.44-1.00); GLUCOSE 137 mg/dl (70-220); MAGNESIUM 2.2 mg/dl (1.7-2.5); PHOSPHORUS 2.8 mg/dl (2.5-4.9); POTASSIUM 3.6 mmol/L (3.5-5.1); SODIUM 135 mmol/L (135-144)
[2018-09-21 07:41] LABS: ADD MAN DIFF? NO
[2018-09-21] MEDS: TPN 1,000 ML IV (08:29)
[2018-09-21] MEDS: CELECOXIB 100 MG CAP PO ×2 (08:30→20:39)
[2018-09-21] MEDS: VITAMIN B COMPLEX/VIT C CAP PO (08:30)
[2018-09-21] MEDS: DULOXETINE 20 MG CAP DR PO (08:30)
[2018-09-21] MEDS: COLLAGENASE 5 GM (UD JAR) TOP ×2 (08:30→22:11)
[2018-09-21] MEDS: FERROUS SULFATE 60 MG/ML 5ML CUP PO ×3 (08:30→20:38)
[2018-09-21] MEDS: ACCU-CHEK XX ×2 (08:31→21:00)
[2018-09-21] MEDS: GABAPENTIN (50 MG/ML PO SYG) PO ×3 (08:31→20:41)
[2018-09-21] MEDS: METOCLOPRAMIDE 5 MG TAB PO ×3 (08:31→20:39)
[2018-09-21] MEDS: FUROSEMIDE 20 MG INJ IV (08:31)
[2018-09-21] MEDS: MAGNESIUM OXIDE 400 MG TAB PO (08:31)
[2018-09-21] MEDS: NEOMYC/POLYMYX/BACIT 30 GM OINT TOP ×2 (08:31→20:41)
[2018-09-21] MEDS: L ACIDOPHIL/B LACTIS/B LONGUM CAPSULE PO ×2 (08:31→20:38)
[2018-09-21] MEDS: FAMOTIDINE 20 MG INJ IV (08:31)
[2018-09-21] MEDS ORDERED: FUROSEMIDE 40 MG INJ IV (09:00)
[2018-09-21] MEDS: FUROSEMIDE 40 MG INJ IV ×2 (12:03→18:20)
[2018-09-21 13:23] LABS: ABNORMAL IP MESSAGE 1; BASOPHILS % 0.3 % (0.0-2.0); EOSINOPHILS # 0.3 10^3/ul (0.0-0.5); HEMATOCRIT 29.6 % (37.0-47.0); HEMOGLOBIN 9.7 g/dl (12.0-16.0); LYMPHOCYTES # 0.7 10^3/ul (0.8-2.9); LYMPHOCYTES % 6.6 % (15.0-51.0); MEAN CORPUSCULAR HEMOGLOBIN 30.5 pg (29.0-33.0); MEAN CORPUSCULAR HGB CONC 32.8 g/dl (32.0-37.0); MEAN CORPUSCULAR VOLUME 93.1 fl (82.0-101.0); MONOCYTE # 0.5 10^3/ul (0.3-0.9); MONOCYTES % 5.3 % (0.0-11.0); NEUTROPHIL # 8.3 10^3/ul (1.6-7.5); NEUTROPHILS % 83.2 % (39.0-77.0); RED BLOOD COUNT 3.18 10^6/ul (4.20-5.40); RED CELL DISTRIBUTION WIDTH 18.1 % (11.5-14.5)
[2018-09-21 13:24] LABS: PLATELET COUNT 41 10^3/UL (140-415)
[2018-09-21 13:25] LABS: POSITIVE DIFF @See below
[2018-09-21] MEDS: MEMANTINE 10 MG TAB PO (17:31)
[2018-09-21] MEDS: morphine 2 MG INJ IV (23:53)
[2018-09-22] MEDS: INSULIN ASPART [NOVOLOG] 3 ML PEN SC ×6 (01:00→20:42)
[2018-09-22] MEDS: DIPHENOXYLATE/ATROPINE TAB PO ×4 (02:22→20:26)
[2018-09-22] MEDS: TPN 1,000 ML IV (04:46)
[2018-09-22] MEDS: SUCRALFATE 1 GM TAB PO ×3 (06:06→17:43)
[2018-09-22 07:23] LABS: ADD MAN DIFF? NO
[2018-09-22 07:29] LABS: WHITE BLOOD COUNT 11.1 10^3/ul (4.8-10.8)
[2018-09-22 07:29] LABS: ABNORMAL IP MESSAGE 1; BASOPHIL # 0.1 10^3/ul (0.0-0.1); BASOPHILS % 0.7 % (0.0-2.0); EOSINOPHILS # 0.3 10^3/ul (0.0-0.5); EOSINOPHILS % 2.8 % (0.0-7.0); HEMATOCRIT 34.3 % (37.0-47.0); LYMPHOCYTES # 0.8 10^3/ul (0.8-2.9); LYMPHOCYTES % 6.8 % (15.0-51.0); MEAN CORPUSCULAR HEMOGLOBIN 30.8 pg (29.0-33.0); MEAN CORPUSCULAR HGB CONC 32.1 g/dl (32.0-37.0); MEAN CORPUSCULAR VOLUME 96.1 fl (82.0-101.0); MONOCYTE # 0.9 10^3/ul (0.3-0.9); MONOCYTES % 7.9 % (0.0-11.0); NEUTROPHIL # 8.9 10^3/ul (1.6-7.5); NEUTROPHILS % 79.9 % (39.0-77.0); RED BLOOD COUNT 3.57 10^6/ul (4.20-5.40); RED CELL DISTRIBUTION WIDTH 18.4 % (11.5-14.5)
[2018-09-22 07:34] LABS: PLATELET COUNT 52 10^3/UL (140-415); POSITIVE DIFF @See below
[2018-09-22 07:54] LABS: ANION GAP 12 (5-13); BLOOD UREA NITROGEN 76 mg/dl (7-20); CALCIUM 8.6 mg/dl (8.4-10.2); CARBON DIOXIDE 17 mmol/L (21-31); CHLORIDE 109 mmol/L (97-110); GLUCOSE 169 mg/dl (70-220); SODIUM 138 mmol/L (135-144)
[2018-09-22 07:59] LABS: PHOSPHORUS 2.6 mg/dl (2.5-4.9)
[2018-09-22 07:59] LABS: MAGNESIUM 2.5 mg/dl (1.7-2.5)
[2018-09-22] MEDS: DULOXETINE 20 MG CAP DR PO (08:14)
[2018-09-22] MEDS: VITAMIN B COMPLEX/VIT C CAP PO (08:14)
[2018-09-22] MEDS: FERROUS SULFATE 60 MG/ML 5ML CUP PO ×3 (08:14→20:26)
[2018-09-22] MEDS: THIAMINE 100 MG TAB PO (08:14)
[2018-09-22] MEDS: L ACIDOPHIL/B LACTIS/B LONGUM CAPSULE PO ×2 (08:14→20:26)
[2018-09-22] MEDS: GABAPENTIN (50 MG/ML PO SYG) PO ×3 (08:14→20:26)
[2018-09-22] MEDS: MAGNESIUM OXIDE 400 MG TAB PO (08:14)
[2018-09-22] MEDS: FAMOTIDINE 20 MG INJ IV (08:15)
[2018-09-22] MEDS: METOCLOPRAMIDE 5 MG TAB PO ×3 (08:15→20:26)
[2018-09-22] MEDS: CELECOXIB 100 MG CAP PO ×2 (08:15→20:26)
[2018-09-22] MEDS: COLLAGENASE 5 GM (UD JAR) TOP ×2 (08:15→20:26)
[2018-09-22] MEDS: NEOMYC/POLYMYX/BACIT 30 GM OINT TOP ×2 (08:16→20:27)
[2018-09-22] MEDS: ACCU-CHEK XX ×2 (08:22→20:43)
[2018-09-22] MEDS ORDERED: FUROSEMIDE 40 MG INJ IV (09:00)
[2018-09-22] MEDS ORDERED: VITAMIN A & D 5 GM OINT PACKET TOP (09:00)
[2018-09-22] MEDS: MEMANTINE 10 MG TAB PO (17:43)
[2018-09-23] MEDS: TPN 1,000 ML IV ×3 (00:42→18:43)
[2018-09-23] MEDS: INSULIN ASPART [NOVOLOG] 3 ML PEN SC ×6 (01:00→21:30)
[2018-09-23] MEDS: PANTOPRAZOLE 40 MG INJ IV ×2 (05:23→17:21)
[2018-09-23 05:26] LABS: ADD MAN DIFF? NO
[2018-09-23 05:36] LABS: WHITE BLOOD COUNT 11.4 10^3/ul (4.8-10.8)
[2018-09-23 05:36] LABS: ABNORMAL IP MESSAGE 1; BASOPHIL # 0.1 10^3/ul (0.0-0.1); BASOPHILS % 0.4 % (0.0-2.0); EOSINOPHILS # 0.2 10^3/ul (0.0-0.5); EOSINOPHILS % 1.9 % (0.0-7.0); HEMATOCRIT 27.6 % (37.0-47.0); HEMOGLOBIN 9.2 g/dl (12.0-16.0); LYMPHOCYTES # 0.7 10^3/ul (0.8-2.9); LYMPHOCYTES % 6.4 % (15.0-51.0); MEAN CORPUSCULAR HEMOGLOBIN 31.2 pg (29.0-33.0); MEAN CORPUSCULAR HGB CONC 33.3 g/dl (32.0-37.0); MEAN CORPUSCULAR VOLUME 93.6 fl (82.0-101.0); MONOCYTES % 8.7 % (0.0-11.0); NEUTROPHIL # 9.1 10^3/ul (1.6-7.5); NEUTROPHILS % 79.7 % (39.0-77.0); RED BLOOD COUNT 2.95 10^6/ul (4.20-5.40)
[2018-09-23 05:46] LABS: PLATELET COUNT 69 10^3/UL (140-415); POSITIVE DIFF @See below
[2018-09-23 06:04] LABS: ALANINE AMINOTRANSFERASE 45 IU/L (13-69); ALBUMIN 2.2 g/dl (3.3-4.9); ALBUMIN/GLOBULIN RATIO 0.95; ALKALINE PHOSPHATASE 245 IU/L (42-121); ANION GAP 12 (5-13); ASPARTATE AMINO TRANSFERASE 44 IU/L (15-46); BILIRUBIN,INDIRECT 0.4 mg/dl (0-1.1); BILIRUBIN,TOTAL 0.4 mg/dl (0.2-1.3); BLOOD UREA NITROGEN 83 mg/dl (7-20); CALCIUM 8.4 mg/dl (8.4-10.2); CARBON DIOXIDE 20 mmol/L (21-31); CHLORIDE 107 mmol/L (97-110); CREATININE 3.09 mg/dl (0.44-1.00); GLUCOSE 101 mg/dl (70-220); POTASSIUM 3.9 mmol/L (3.5-5.1); SODIUM 139 mmol/L (135-144); TOTAL PROTEIN 4.5 g/dl (6.1-8.1)
[2018-09-23 07:45] LABS: ANION GAP 9 (5-13); BLOOD UREA NITROGEN 86 mg/dl (7-20); CALCIUM 8.6 mg/dl (8.4-10.2); CARBON DIOXIDE 18 mmol/L (21-31); CHLORIDE 110 mmol/L (97-110); CREATININE 3.17 mg/dl (0.44-1.00); GLUCOSE 102 mg/dl (70-220); MAGNESIUM 2.6 mg/dl (1.7-2.5); POTASSIUM 3.9 mmol/L (3.5-5.1); SODIUM 137 mmol/L (135-144)
[2018-09-23] MEDS: ACCU-CHEK XX ×2 (09:00→21:00)
[2018-09-23] MEDS: NEOMYC/POLYMYX/BACIT 30 GM OINT TOP ×2 (09:00→21:34)
[2018-09-23] MEDS: FERROUS SULFATE 60 MG/ML 5ML CUP PO ×3 (09:47→21:20)
[2018-09-23] MEDS: GABAPENTIN (50 MG/ML PO SYG) PO ×3 (09:47→21:21)
[2018-09-23] MEDS: CELECOXIB 100 MG CAP PO ×2 (09:47→21:21)
[2018-09-23] MEDS: METOCLOPRAMIDE 5 MG TAB PO ×3 (09:48→21:21)
[2018-09-23] MEDS: COLLAGENASE 5 GM (UD JAR) TOP (09:48)
[2018-09-23] MEDS: DULOXETINE 20 MG CAP DR PO (09:48)
[2018-09-23] MEDS ORDERED: BUMETANIDE 1 MG INJ IV (10:30)
[2018-09-23] MEDS: ALBUMIN HUMAN 25% 50 ML IV (12:30)
[2018-09-23] MEDS: BUMETANIDE 2 MG in DEXTROSE 5% 17 ML IV (13:23)
[2018-09-23] MEDS: POTASSIUM PHOSPHATE 20 MEQ in SOD CHLORIDE 0.9% 250 ML IVPB (13:23)
[2018-09-23] MEDS: FAT EMULSION 20% 250 ML IV (16:18)
[2018-09-24] MEDS: BUMETANIDE 2 MG in DEXTROSE 5% 17 ML IV (01:30)
[2018-09-24] MEDS: INSULIN ASPART [NOVOLOG] 3 ML PEN SC ×6 (01:33→21:15)
[2018-09-24] MEDS: PANTOPRAZOLE 40 MG INJ IV ×2 (06:03→18:43)
[2018-09-24 06:40] LABS: ADD MAN DIFF? NO
[2018-09-24 06:59] LABS: WHITE BLOOD COUNT 11.5 10^3/ul (4.8-10.8)
[2018-09-24 06:59] LABS: ABNORMAL IP MESSAGE 1; BASOPHILS % 0.3 % (0.0-2.0); EOSINOPHILS # 0.2 10^3/ul (0.0-0.5); EOSINOPHILS % 1.6 % (0.0-7.0); HEMATOCRIT 25.6 % (37.0-47.0); HEMOGLOBIN 8.5 g/dl (12.0-16.0); LYMPHOCYTES # 0.9 10^3/ul (0.8-2.9); LYMPHOCYTES % 7.6 % (15.0-51.0); MEAN CORPUSCULAR HEMOGLOBIN 30.4 pg (29.0-33.0); MEAN CORPUSCULAR HGB CONC 33.2 g/dl (32.0-37.0); MEAN CORPUSCULAR VOLUME 91.4 fl (82.0-101.0); MONOCYTE # 0.8 10^3/ul (0.3-0.9); MONOCYTES % 7.2 % (0.0-11.0); NEUTROPHIL # 8.9 10^3/ul (1.6-7.5); NEUTROPHILS % 77.3 % (39.0-77.0); NUCLEATED RED BLOOD CELLS% 0.2 /100WBC (0.0-0.0); PLATELET COUNT 76 10^3/UL (140-415)
[2018-09-24 07:09] LABS: POSITIVE DIFF @See below
[2018-09-24 07:39] LABS: ANION GAP 12 (5-13); BLOOD UREA NITROGEN 91 mg/dl (7-20); CALCIUM 8.6 mg/dl (8.4-10.2); CARBON DIOXIDE 20 mmol/L (21-31); CHLORIDE 105 mmol/L (97-110); CREATININE 3.31 mg/dl (0.44-1.00); GLUCOSE 165 mg/dl (70-220); MAGNESIUM 2.5 mg/dl (1.7-2.5); PHOSPHORUS 1.8 mg/dl (2.5-4.9); POTASSIUM 3.9 mmol/L (3.5-5.1); SODIUM 137 mmol/L (135-144)
[2018-09-24] MEDS: DULOXETINE 20 MG CAP DR PO (09:00)
[2018-09-24] MEDS: CELECOXIB 100 MG CAP PO (09:00)
[2018-09-24] MEDS: FERROUS SULFATE 60 MG/ML 5ML CUP PO (09:00)
[2018-09-24] MEDS: ACCU-CHEK XX (09:00)
[2018-09-24] MEDS: METOCLOPRAMIDE 5 MG TAB PO (09:00)
[2018-09-24] MEDS: GABAPENTIN (50 MG/ML PO SYG) PO ×3 (09:00→21:13)
[2018-09-24 09:18] LABS: ANISOCYTOSIS 2+ (0-0); BAND NEUTROPHILS #M 0.1 10^3/ul (0.0-0.6); BAND NEUTROPHILS % (M) 1 % (0-4); BASOPHIL #M 0.1 10^3/ul (0.0-0.0); BASOPHILS % (M) 1 % (0-2); EOSINOPHILS % (M) 1 % (0-7); ERYTHROBLAST% (NRBC) (M) 2 % (0-0); GIANT THROMBO% (M) 4 % (0-0); LYMPHOCYTES #M 2.6 10^3/ul (0.8-2.9); LYMPHOCYTES % (M) 23 % (15-51); MICROCYTOSIS 1+ (0-0); MONOCYTE #M 0.3 10^3/ul (0.3-0.9); MONOCYTES % (M) 3 % (0-11); PLATELET ESTIMATE DECREASED; SEG NEUT #M 8.2 10^3/ul (1.6-7.5); SEGMENTED NEUTROPHILS (M) % 71 % (39-77); SMUDGE%M 25 % (0-0)
[2018-09-24] MEDS: NEOMYC/POLYMYX/BACIT 30 GM OINT TOP ×2 (09:43→21:13)
[2018-09-24] MEDS: TPN 1,000 ML IV (11:34)
[2018-09-24] MEDS ORDERED: FUROSEMIDE 40 MG INJ IV (13:30)
[2018-09-24] MEDS: BUMETANIDE 2 MG in DEXTROSE 5% 17 ML IVPB (15:01)
[2018-09-25] MEDS: INSULIN ASPART [NOVOLOG] 3 ML PEN SC ×3 (01:15→09:00)
[2018-09-25] MEDS: TPN 1,000 ML IV (03:06)
[2018-09-25] MEDS: COLLAGENASE 5 GM (UD JAR) TOP (03:19)
[2018-09-25] MEDS ORDERED: COLLAGENASE 5 GM (UD JAR) TOP (03:30)
[2018-09-25] MEDS ORDERED: PENDING SANTYL ORDER FOR WOUND CARE XX (03:30)
[2018-09-25] MEDS: PANTOPRAZOLE 40 MG INJ IV (05:31)
[2018-09-25] MEDS: NEOMYC/POLYMYX/BACIT 30 GM OINT TOP (09:00)
[2018-09-25] MEDS: GABAPENTIN (50 MG/ML PO SYG) PO (09:00)
[2018-09-25] MEDS: ACCU-CHEK XX (09:00)
[2018-09-25] MEDS: morphine 2 MG INJ IV ×2 (10:16→12:18)
[2018-09-25] MEDS ORDERED: LORAZEPAM 2 MG INJ IV (11:00)
[2018-09-25] MEDS ORDERED: BISACODYL 10 MG SUPP PR (11:00)
[2018-09-25] MEDS ORDERED: ATROPINE 1% 5 ML OPH SL (11:00)
[2018-09-25] MEDS ORDERED: ONDANSETRON 4 MG INJ IV (11:00)
[2018-09-25] MEDS ORDERED: ACETAMINOPHEN 650 MG SUPP PR (13:00)
[2018-09-25] MEDS: morphine (DRIP) 100 MG/100 ML 100 ML IV (14:25)
[2018-09-26] MEDS: SCOPOLAMINE 1.5 MG PATCH TRANSDERM (20:03)
[2018-09-26] MEDS: ATROPINE 1% 5 ML OPH SL (20:19)
== END 2018-09-27 09:45 | disposition expired | DRG 377 ==
LOC: MS1 09-12 17:45 → ICU 09-14 07:30 → 5EC 09-17 14:01 → E/R 18:01 → ICU 09-14 13:09 → PP2 09-17 22:25 → 6WM 22:18
PROC: 0DB68ZX Excision of Stomach, Via Natural or Artificial Opening Endoscopic, Diagnostic (ICD-10-PCS; principal; 2018-08-16 14:00)
PROC: 0DBL8ZX Excision of Transverse Colon, Via Natural or Artificial Opening Endoscopic, Diagnostic (ICD-10-PCS; 2018-08-16 14:00)
PROC: 0DBP8ZX Excision of Rectum, Via Natural or Artificial Opening Endoscopic, Diagnostic (ICD-10-PCS; 2018-08-16 14:00)
PROC: 0W3P8ZZ Control Bleeding in Gastrointestinal Tract, Via Natural or Artificial Opening Endoscopic (ICD-10-PCS; 2018-08-16 14:00)
PROC: 02HV33Z Insertion of Infusion Device into Superior Vena Cava, Percutaneous Approach (ICD-10-PCS; 2018-08-16 15:00)
PROC: 30233K1 Transfusion of Nonautologous Frozen Plasma into Peripheral Vein, Percutaneous Approach (ICD-10-PCS; 2018-08-16 15:00)
PROC: 30233N1 Transfusion of Nonautologous Red Blood Cells into Peripheral Vein, Percutaneous Approach (ICD-10-PCS; 2018-08-16 15:00)
DX: K25.4 Chronic or unspecified gastric ulcer with hemorrhage (principal); L89.153 Pressure ulcer of sacral region, stage 3; A41.9 Sepsis, unspecified organism; J96.21 Acute and chronic respiratory failure with hypoxia; J69.0 Pneumonitis due to inhalation of food and vomit; I21.4 Non-ST elevation (NSTEMI) myocardial infarction; R53.2 Functional quadriplegia; R65.21 Severe sepsis with septic shock; I50.33 Acute on chronic diastolic (congestive) heart failure; D62 Acute posthemorrhagic anemia; N17.9 Acute kidney failure, unspecified; E87.2 Acidosis; A04.72 Enterocolitis due to Clostridium difficile, not specified as recurrent; N39.0 Urinary tract infection, site not specified; E46 Unspecified protein-calorie malnutrition; K62.6 Ulcer of anus and rectum; I13.0 Hypertensive heart and chronic kidney disease with heart failure and stage 1 through stage 4 chronic kidney disease, or unspecified chronic kidney disease; N18.2 Chronic kidney disease, stage 2 (mild); Z74.01 Bed confinement status; Z68.30 Body mass index [BMI] 30.0-30.9, adult; Z79.02 Long term (current) use of antithrombotics/antiplatelets; Z79.82 Long term (current) use of aspirin; Z98.84 Bariatric surgery status; K63.5 Polyp of colon; K57.30 Diverticulosis of large intestine without perforation or abscess without bleeding; M79.89 Other specified soft tissue disorders; Z86.718 Personal history of other venous thrombosis and embolism; E11.9 Type 2 diabetes mellitus without complications; E66.01 Morbid (severe) obesity due to excess calories; R13.10 Dysphagia, unspecified
CPT/HCPCS: 36415; 36430; 36569; 36600; 71045; 73030; 74176; 74230; 76700; 76705; 76937; 80048; 80053; 80061; 81001; 82040; 82270; 82607; 82668; 82728; 82746; 82784; 82803; 82962; 83540; 83605; 83690; 83735; 83880; 83970; 84100; 84132; 84134; 84145; 84155; 84156; 84165; 84436; 84439; 84443; 84478; 84480; 84484; 85014; 85018; 85025; 85045; 85610; 85651; 85730; 86320; 86850; 86900; 86901; 86920; 87040; 87045; 87070; 87075; 87081; 87086; 88305; 88312; 92526; 92610; 92611; 93005; 93306; 93970; 93971; 94640; 94660; 94664; 97110; 97162; 97530; 99285-25